=== PATIENT | female | born 1935 | race Hispanic/Latino ===

== ENCOUNTER 2017-03-11 19:50 | Observation (INO) | payer MEDICARE ==
[2017-03-11 20:50] LABS: BASO # 0.02 K/mm3 (0.0-2.0); BASO % 0.3 % (0.0-3.0); EOS # 0.2 (0.0-0.7); EOS % 2.7 % (1.5-5.0); GRAN # 5.17 (1.4-6.5); GRAN % 73.8 % (50.0-68.0); HEMATOCRIT 41.4 % (36.0-48.0); LYMPH % 14.9 % (22.0-35.0); MEAN CELL VOLUME 98.8 fl (80.0-105.0); MEAN CORPUSCULAR HEMOGLOBIN 32.9 pg (25.0-35.0); MEAN CORPUSCULAR HGB CONC 33.3 g/dl (31.0-37.0); MEAN PLATELET VOLUME 10.1 fl (7.0-11.0); MONO # 0.6 (0.1-0.6); MONO % 8.3 % (1.0-6.0); RED CELL DISTRIBUTION WIDTH 13.6 % (11.5-14.5)
[2017-03-11 20:51] LABS: ALB/GLOB RATIO 1.2 (1.1-1.8); ALKALINE PHOSPHATASE 79 U/L (38-126); ALT/SGPT 138 U/L (7-56); AST/SGOT 311 U/L (14-36); BILIRUBIN,TOTAL 1.6 mg/dL (0.2-1.3); BLOOD UREA NITROGEN 25 mg/dL (7-21); CARBON DIOXIDE 31 mmol/L (21-33); CHLORIDE 98 mmol/L (98-107); GFR AFRICAN-AMERICAN > 60; GLUCOSE,RANDOM 157 mg/dL (70-110); MAGNESIUM 1.6 mg/dL (1.7-2.2); POTASSIUM 3.5 mmol/L (3.6-5.0); SODIUM 141 mmol/L (132-148); TOTAL PROTEIN 7.9 g/dL (5.8-8.3)
[2017-03-11 20:57] LABS: INR 2.76 (0.93-1.08); PARTIAL THROMBOPLASTIN TIME 37.3 Seconds (23.7-30.8)
[2017-03-11 21:02] LABS: TROPONIN I 0.05 ng/mL
[2017-03-11 21:20] LABS: URINE BILIRUBIN NEGATIVE (NEGATIVE); URINE BLOOD NEGATIVE (NEGATIVE); URINE GLUCOSE (UA) NEGATIVE (NEGATIVE); URINE KETONE NEGATIVE (NEGATIVE); URINE LEUKOCYTE ESTERASE TRACE Leu/uL (NEGATIVE); URINE PROTEIN NEGATIVE mg/dL (<30 mg/dL); URINE UROBILINOGEN 0.2 E.U./dL (<1 E.U./dL)
[2017-03-11 21:22] LABS: URINE APPEARANCE SL CLOUDY (CLEAR); URINE COLOR YELLOW (YELLOW)
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
[2017-03-11 22:09] LABS: URINE BACTERIA FEW (NEG); URINE EPITHELIAL CELLS 0 - 2 /hpf (0-5); URINE RBC 0 - 2 /hpf (0-2)
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
[2017-03-12] MEDS ORDERED: Magnesium Sulfate 2 GM in Sodium Chloride 0.9% 100 ML IVPB ONE (02:46)
[2017-03-12] MEDS: Pantoprazole 40 mg EC Tab PO SCH (06:19)
[2017-03-12 06:39] LABS: BASO # 0.02 K/mm3 (0.0-2.0); BASO % 0.4 % (0.0-3.0); EOS # 0.1 (0.0-0.7); EOS % 2.7 % (1.5-5.0); GRAN # 3.51 (1.4-6.5); GRAN % 71.6 % (50.0-68.0); LYMPH # 0.8 (1.2-3.4); LYMPH % 17.1 % (22.0-35.0); MEAN CELL VOLUME 98.8 fl (80.0-105.0); MEAN CORPUSCULAR HEMOGLOBIN 32.5 pg (25.0-35.0); MEAN CORPUSCULAR HGB CONC 32.9 g/dl (31.0-37.0); MEAN PLATELET VOLUME 10.3 fl (7.0-11.0); MONO # 0.4 (0.1-0.6); MONO % 8.2 % (1.0-6.0); RED CELL DISTRIBUTION WIDTH 13.7 % (11.5-14.5); WHITE BLOOD COUNT 4.9 10^3/ul (4.5-11.0)
[2017-03-12 06:48] LABS: ALB/GLOB RATIO 1.2 (1.1-1.8); ALKALINE PHOSPHATASE 86 U/L (38-126); ALT/SGPT 354 U/L (7-56); AST/SGOT 646 U/L (14-36); BLOOD UREA NITROGEN 22 mg/dL (7-21); CALCIUM 9.1 mg/dL (8.4-10.5); CARBON DIOXIDE 33 mmol/L (21-33); CHLORIDE 99 mmol/L (98-107); GFR AFRICAN-AMERICAN > 60; GLUCOSE,RANDOM 200 mg/dL (70-110); INR 2.69 (0.93-1.08); MAGNESIUM 2.2 mg/dL (1.7-2.2); PARTIAL THROMBOPLASTIN TIME 36.6 Seconds (23.7-30.8); POTASSIUM 3.6 mmol/L (3.6-5.0); SODIUM 141 mmol/L (132-148); TOTAL PROTEIN 7.7 g/dL (5.8-8.3)
[2017-03-12 06:55] LABS: TROPONIN I 0.06 ng/mL
[2017-03-12] MEDS: Insulin Lispro (humaLOG) MEDIUM Coverage SC SCH ×4 (08:22→21:48)
--- NOTE | 2017-03-12 08:25 | CON ---
DATE: 03/12/2017 CONSULTATION OF INDICATION: Chest pain. HISTORY OF PRESENT ILLNESS: This is an 81-year-old lady who was admitted to the emergency room yesterday when she complained about a midsternal to midepigastric discomfort which was like a fullness, which was uncomfortable, but not painful as she described it. It was not associated with diaphoresis or shortness of breath. It resolved during the night. This morning, she does not have the symptoms. There was no shortness of breath, orthopnea, PND, syncope, presyncope, lightheadedness, dizziness, vertigo, palpitation, edema, fever, chills, cough, sputum production, hemoptysis, abdominal pain, nausea, vomiting, diarrhea, constipation, or melena. PAST MEDICAL HISTORY: Notable for prior chest pain. She has hypertension, COPD, chronic left bundle branch block, chronic atrial fibrillation, on warfarin; diabetes, hyperlipidemia, fatty liver, osteoarthritis, kyphoscoliosis. She has a history of lung resection for cancer. She has a history of colon resection. There is history of peripheral arterial disease, diverticulosis. There is no history of rheumatic fever, myocardial infarction, stroke, TIA, or gout. MEDICATIONS: At the time of admission, Coreg, digoxin, Bumex, metformin, glipizide, Xanax, Coumadin, aspirin, budesonide, Brovana, Tudorza. ALLERGIES: SHE NOTES AN ALLERGY TO LASIX AND LATEX. SOCIAL HISTORY: She lives at home. She ambulates with a cane. She does not smoke cigarettes or drink alcohol. FAMILY HISTORY: Noncontributory. REVIEW OF SYSTEMS: A 10-point review of systems otherwise unremarkable except as noted above. PHYSICAL EXAMINATION GENERAL: She is an elderly woman, sitting in chair, on telemetry, in no acute distress. VITAL SIGNS: Vital signs are notable for atrial fibrillation with 60 beats per minute, she is afebrile, blood pressure 127/51, respirations 16-20, O2 sat 97% to 99% on room air. HEENT: Reveals no neck pain, distention, thyromegaly, carotid bruits. Mucous membranes moist. Conjunctiva pink. NECK: Supple. LUNGS: Few scattered rhonchi. Diminished breath sounds at the bases. HEART: Reveals an irregular rhythm. Normal first and second heart sounds. Soft systolic murmur along the left sternal border. ABDOMEN: Soft. Bowel sounds present. No mass, organomegaly, tenderness, rebound, or guarding. No CVA tenderness. No palpable abdominal aortic aneurysm. EXTREMITIES: Reveals no cyanosis, clubbing, or edema. NEUROLOGIC: She is awake, alert, and oriented. SKIN: Warm and dry. No rash or cellulitis. LABORATORY AND IMAGING: Portable chest x-ray is not interpret yet. There is no evidence of infiltrate or CHF. There were small bilateral pleural effusions noted. EKG demonstrates atrial fibrillation, left bundle branch block. CBC is unremarkable. PT/INR consistent with warfarin therapy. INR is 2.69 this morning. Electrolytes, BUN, creatinine, and blood sugars unremarkable. LFTs are abnormal with an AST of 646 this morning, ALT 354, bilirubin 3.0, alkaline phosphatase normal. CK negative x2. Troponin negative x3. BNP 2310. Urinalysis noted. An echocardiogram 07/29 shows moderate LV dysfunction with mild AI and MR and moderate TR and PH. IMPRESSION: Chasity Lerner is an 81-year-old woman with chronic atrial fibrillation, on warfarin, who has developed midepigastric and low sternal discomfort and has abnormal liver function test, suggesting the possibility of underlying gastrointestinal problem with no evidence of acute cardiac ischemia, negative troponins and chronic left bundle branch block on her EKG. PLAN: At this time she is on Telemetry. We will continue cardiac medications including Coreg, Digoxin, aspirin, warfarin. We will monitor INRs. We will check a digoxin level. She should have a GI evaluation. I will check an amylase and a lipase level. An abdominal ultrasound is ordered. I will review old records and her 07/29 echocardiogram. We will monitor I's and O's. Check stool for occult blood. I will follow with you. I will make additional recommendations based on her clinical course. Travis Cotter MD [facility]
[2017-03-12 08:32] LABS: AMYLASE 49 U/L (35-125); LIPASE 75 U/L (23-300)
--- NOTE | 2017-03-12 08:44 | CARD ---
APPROVED REPORT EKG Measurement Heart [id number] <Conclusion> Atrial fibrillation Left bundle branch block No change
--- NOTE | 2017-03-12 08:51 | CARD ---
APPROVED REPORT EKG Measurement Heart [id number] <Conclusion> Atrial fibrillation Left bundle branch block No change
--- NOTE | 2017-03-12 09:05 | CARD ---
APPROVED REPORT EKG Measurement Heart [id number] <Conclusion> Atrial fibrillation with slow ventricular response Left axis deviation Left bundle branch block No change
[2017-03-12] MEDS: Arformoterol 15 mcg/2 ml Inh Sol IH SCH ×2 (09:15→20:12)
--- NOTE | 2017-03-12 10:09 | RAD ---
HISTORY: cp COMPARISON: 02/01/2017 FINDINGS: LUNGS: No active pulmonary disease. PLEURA: Blunting of both costophrenic angles may reflect small pleural effusions or chronic pleural thickening. CARDIOVASCULAR: Normal heart size. Surgical clips about right hilum OSSEOUS STRUCTURES: No significant abnormalities. VISUALIZED UPPER ABDOMEN: Normal. OTHER FINDINGS: None. IMPRESSION: No acute infiltrate. Possible small bilateral pleural effusion.
--- NOTE | 2017-03-12 14:27 | US ---
HISTORY: Transaminitis COMPARISON: None. TECHNIQUE: Sonographic evaluation of the abdomen. FINDINGS: LIVER: Measures 15.5 cm. Diffusely increased echogenicity of the liver parenchyma. Consistent with fatty infiltration. Smooth contour. No mass. No biliary ductal dilatation. GALLBLADDER: Cholelithiasis. No mural thickening. No pericholecystic fluid. Negative sonographic Pryor sign. COMMON BILE DUCT: Measures 5 mm. No stones. No dilatation. PANCREAS: Unremarkable as visualized. No mass. No ductal dilatation. RIGHT KIDNEY: Measures 11.2cm. Normal cortical echogenicity. Upper pole cortical cyst, 2.0 x 2.2 x 2.4 cm. No calculus or hydronephrosis. LEFT KIDNEY: Measures 11.1cm. Normal cortical echogenicity. Mid to upper pole cortical cyst, 3.8 x 3.8 x 4.8 cm. No calculus or hydronephrosis. SPLEEN: Normal in size and contour. No mass. AORTA: No aneurysmal dilatation. IVC: Unremarkable. OTHER FINDINGS: None. IMPRESSION: Cholelithiasis without sonographic evidence of cholecystitis. Diffuse fatty infiltration of the liver. Bilateral simple renal cortical cysts.
[2017-03-12] MEDS: Digoxin 125 mcg (0.125 mg) Tab PO SCH (14:50)
[2017-03-12 14:57] LABS: TROPONIN I 0.05 ng/mL
[2017-03-12 22:50] LABS: TROPONIN I 0.06 ng/mL
[2017-03-12 22:58] VITALS: BMI 25.4
[2017-03-13] MEDS: Pantoprazole 40 mg EC Tab PO SCH (06:12)
[2017-03-13 06:55] LABS: BASO # 0.04 K/mm3 (0.0-2.0); BASO % 0.8 % (0.0-3.0); EOS # 0.4 (0.0-0.7); EOS % 7.6 % (1.5-5.0); GRAN # 2.73 (1.4-6.5); GRAN % 55.8 % (50.0-68.0); HEMATOCRIT 41.8 % (36.0-48.0); LYMPH # 1.3 (1.2-3.4); MEAN CELL VOLUME 99.1 fl (80.0-105.0); MEAN CORPUSCULAR HEMOGLOBIN 32.5 pg (25.0-35.0); MEAN CORPUSCULAR HGB CONC 32.8 g/dl (31.0-37.0); MEAN PLATELET VOLUME 10.2 fl (7.0-11.0); MONO # 0.5 (0.1-0.6); MONO % 9.8 % (1.0-6.0); RED CELL DISTRIBUTION WIDTH 13.9 % (11.5-14.5); WHITE BLOOD COUNT 4.9 10^3/ul (4.5-11.0)
[2017-03-13 06:57] LABS: INR 2.45 (0.93-1.08); PARTIAL THROMBOPLASTIN TIME 36.9 Seconds (23.7-30.8)
[2017-03-13 07:05] LABS: ALB/GLOB RATIO 1.1 (1.1-1.8); BILIRUBIN,TOTAL 2.1 mg/dL (0.2-1.3); PHOSPHOROUS 3.4 mg/dL (2.5-4.5); POTASSIUM 3.5 mmol/L (3.6-5.0); TOTAL PROTEIN 7.9 g/dL (5.8-8.3)
--- NOTE | 2017-03-13 08:01 | CARD ---
APPROVED REPORT EKG Measurement Heart [id number] <Conclusion> Atrial fibrillation with slow ventricular response Left axis deviation Left bundle branch block No change
[2017-03-13] MEDS: Insulin Lispro (humaLOG) MEDIUM Coverage SC SCH ×4 (08:06→21:19)
[2017-03-13] MEDS: Arformoterol 15 mcg/2 ml Inh Sol IH SCH ×2 (08:16→21:28)
--- NOTE | 2017-03-13 08:25 | CP.PCM.PN ---
Subjective - Date & Time of Evaluation Date of Evaluation: 03/13/17 Time of Evaluation: 07:00 - Subjective Subjective: Stable on 2R. No CP or SOB. V/S noted. AF PE: Lungs: clear Cor.: irreg S1S2 Abd.: soft Ext.: no edema Neuro.: alert Labs noted: INR= 2.45, K+= 3.5, Mg.++= 2.0, Dig.=1.0, trops neg. x 4, Amylase /Lipase pending Abd.: U/S noted: Gall Stones, etc. ECG 03/12 noted: AF, LBBB Echo 07/29 noted: Moderate LVD, Mild AI and MR, moderate TR and PH. Objective - Vital Signs/Intake and Output Vital Signs (last 24 hours): Temp Pulse Resp BP Pulse Ox 98.0 F 66 20 126/73 95 03/13/17 06:00 03/13/17 06:00 03/13/17 06:00 03/13/17 06:00 03/13/17 06:00 - Medications Medications: Current Medications Alprazolam (Xanax) 0.25 mg PO BID [facility] PRN Reason: Protocol Stop: 03/19/17 10:01 Last Admin: 03/12/17 18:34 Dose: 0.25 mg Arformoterol Tartrate (Brovana) 15 mcg IH BIDRESP [facility] Last Admin: 03/12/17 20:12 Dose: 15 mcg Aspirin (Ecotrin) 81 mg PO DAILY [facility] Last Admin: 03/12/17 10:12 Dose: 81 mg Bumetanide (Bumex) 0.5 mg PO BID [facility] Last Admin: 03/12/17 21:23 Dose: 0.5 mg Carvedilol (Coreg) 3.125 mg PO BID [facility] Last Admin: 03/12/17 18:32 Dose: 3.125 mg Digoxin (Lanoxin) 0.125 mg PO 1400 [facility] Last Admin: 03/12/17 14:50 Dose: Not Given Insulin Human Lispro (Humalog Med) 0 units SC ACHS [facility] PRN Reason: Protocol Last Admin: 03/12/17 21:48 Dose: Not Given Pantoprazole Sodium (Protonix Ec Tab) 40 mg PO 0600 [facility] Last Admin: 03/13/17 06:12 Dose: 40 mg Potassium Chloride (K-Dur 20 Meq Er Tab) 20 meq PO BRK [facility] Warfarin Sodium (Coumadin) 4 mg PO 1800 [facility] Last Admin: 03/12/17 18:31 Dose: 4 mg - Labs Labs: 03/13/17 06:40 03/13/17 06:40 PT 26.5 Seconds (9.9-11.8) H 03/13/17 06:40 INR 2.45 (0.93-1.08) H 03/13/17 06:40 APTT 36.9 Seconds (23.7-30.8) H 03/13/17 06:40 Assessment and Plan - Assessment and Plan (Free Text) Assessment: ZACH and Chest Pain Abnormall LFT's Gall Stones Small bilat. pleural effusions on CXR Chronic AF, on warfarin CHF COPD HBP HLD PAD Fatty Liver S/P lung resection for cancer S/P colon resection OA Kyphoscoliosis Plan: GI evaluation Replace K+ Continue cardiac meds. Monitor INR's Check stool for occult blood OOB as francis. Will follow.
[2017-03-13] MEDS: Potassium Chloride 20 mEq ER Tab PO SCH (09:08)
[2017-03-13] MEDS: Digoxin 125 mcg (0.125 mg) Tab PO SCH (14:33)
--- NOTE | 2017-03-13 20:44 | CP.PCM.PN ---
<Mary Ellen Dickey - Last Filed: 03/13/17 20:48> Subjective - Date & Time of Evaluation Date of Evaluation: 03/13/17 Time of Evaluation: 08:00 - Subjective Subjective: Hospitalist Service Progress Note: Patient seen and examined at bedside. Per nursing no acute events overnight. Patient is doing well, denies any chest discomfort at this time. Denies headaches, dizziness, cp, palpitations, abdominal pain, urinary symptoms, changes in bowel habits. Objective - Vital Signs/Intake and Output Vital Signs (last 24 hours): Temp Pulse Resp BP Pulse Ox 98 F 60 19 115/77 95 03/13/17 17:47 03/13/17 18:00 03/13/17 17:47 03/13/17 17:47 03/13/17 06:00 - Medications Medications: Current Medications Alprazolam (Xanax) 0.25 mg PO BID [facility] PRN Reason: Protocol Stop: 03/19/17 10:01 Last Admin: 03/13/17 17:43 Dose: 0.25 mg Arformoterol Tartrate (Brovana) 15 mcg IH BIDRESP [facility] Last Admin: 03/13/17 08:16 Dose: 15 mcg Aspirin (Ecotrin) 81 mg PO DAILY [facility] Last Admin: 03/13/17 09:07 Dose: 81 mg Bumetanide (Bumex) 0.5 mg PO BID [facility] Last Admin: 03/13/17 17:43 Dose: 0.5 mg Carvedilol (Coreg) 3.125 mg PO BID [facility] Last Admin: 03/13/17 17:43 Dose: 3.125 mg Digoxin (Lanoxin) 0.125 mg PO 1400 [facility] Last Admin: 03/13/17 14:33 Dose: 0.125 mg Insulin Human Lispro (Humalog Med) 0 units SC ACHS [facility] PRN Reason: Protocol Last Admin: 03/13/17 16:30 Dose: Not Given Pantoprazole Sodium (Protonix Ec Tab) 40 mg PO 0600 [facility] Last Admin: 03/13/17 06:12 Dose: 40 mg Potassium Chloride (K-Dur 20 Meq Er Tab) 20 meq PO BRK [facility] Last Admin: 03/13/17 09:08 Dose: 20 meq Warfarin Sodium (Coumadin) 4 mg PO 1800 [facility] Last Admin: 03/13/17 17:42 Dose: 4 mg - Labs Labs: 03/13/17 06:40 03/13/17 06:40 PT 26.5 Seconds (9.9-11.8) H 03/13/17 06:40 INR 2.45 (0.93-1.08) H 03/13/17 06:40 APTT 36.9 Seconds (23.7-30.8) H 03/13/17 06:40 - Constitutional Appears: Well, No Acute Distress - Head Exam Head Exam: ATRAUMATIC, NORMAL INSPECTION - Eye Exam Eye Exam: EOMI, Normal appearance Pupil Exam: NORMAL ACCOMODATION - ENT Exam ENT Exam: Mucous Membranes Moist - Neck Exam Neck Exam: Full ROM - Respiratory Exam Respiratory Exam: Clear to Ausculation Bilateral, NORMAL BREATHING PATTERN. absent: Rales, Rhonchi, Wheezes - Cardiovascular Exam Cardiovascular Exam: REGULAR RHYTHM, +S1, +S2 - GI/Abdominal Exam GI & Abdominal Exam: Soft. absent: Guarding, Rigid, Tenderness Additional comments: Negative murphys sign - Rectal Exam Rectal Exam: Deferred - Extremities Exam Extremities Exam: Full ROM, Normal Inspection. absent: Calf Tenderness - Back Exam Back Exam: NORMAL INSPECTION - Neurological Exam Neurological Exam: Alert, Awake, Oriented x3 - Psychiatric Exam Psychiatric exam: Normal Affect, Normal Mood - Skin Skin Exam: Normal Color, Warm Assessment and Plan - Assessment and Plan (Free Text) Assessment: 81 F w/ pertinent PMHx of CHF and A-Fib presenting with 6 hours of chest discomfort, non-radiating, without associated symptoms. Plan: 1. Chest pain likely 2/2 Anxiety VS GERD R/o ACS - Cardio consult, Dr. Cotter - EKG showed LBBB and A-Fib, consistent with previous EKGs - BNP elevated, but lower than last visit; - CXR shows blunted cardiophrenic angles, but no clinical signs of CHF - ASA 81 mg PO daily - Patient is already on home medications of Bumex and Lasix 2. Transaminitis likely 2/2 Medication SE VS Unknown Etiology - AST/ALT markedly elevated - Abdominal U/S showing cholilethiasis - MRCP ordered for further evaluation - GI consulted, f/u recommendations 3. RLE Wound - Patient has good follow up for these chronic wounds - Will continue to monitor 4. Hx/O Atrial fibrillation - Continue home Carvediol - held at night because HR dipping into 50s - Continue home Digoxin - Continue home Coumadin - INR Therapeutic, continue to monitor 5. Hx/O DM 2 - RISS Moderate - ACHS Accuchecks - Hold oral anti-hyperglycemics 6. Hx/O CHF - Continue home Bumetanide - Continue home Lasix - Echo ordered - Cardiology on consult, f/u recommendations 7. Hx/O COPD - Continue home Brovana - Continue Pulmicort GI/DVT PPX - Patient is on Coumadin; Protonix <Rangasamy,Ajantha - Last Filed: 03/14/17 13:39> Objective - Vital Signs/Intake and Output Vital Signs (last 24 hours): Temp Pulse Resp BP Pulse Ox 97.4 F L 51 L 18 144/82 93 L 03/14/17 12:00 03/14/17 12:00 03/14/17 12:00 03/14/17 12:00 03/14/17 05:22 Intake and Output: 03/14/17 03/14/17 06:59 18:59 Intake Total 1380 Output Total 3 Balance 1377 - Medications Medications: Current Medications Alprazolam (Xanax) 0.25 mg PO BID [facility] PRN Reason: Protocol Stop: 03/19/17 10:01 Last Admin: 03/14/17 10:02 Dose: Not Given Arformoterol Tartrate (Brovana) 15 mcg IH BIDRESP [facility] Last Admin: 03/14/17 07:43 Dose: 15 mcg Aspirin (Ecotrin) 81 mg PO DAILY [facility] Last Admin: 03/14/17 10:00 Dose: 81 mg Benzocaine/Menthol (Cepacol Sore Throat) 1 lorenza MT Q2H PRN PRN Reason: Sore Throat Last Admin: 03/14/17 03:30 Dose: 1 lorenza Bumetanide (Bumex) 0.5 mg PO BID [facility] Last Admin: 03/14/17 09:59 Dose: 0.5 mg Carvedilol (Coreg) 3.125 mg PO BID [facility] Last Admin: 03/14/17 10:00 Dose: 3.125 mg Digoxin (Lanoxin) 0.125 mg PO 1400 [facility] Last Admin: 03/13/17 14:33 Dose: 0.125 mg Insulin Human Lispro (Humalog Med) 0 units SC [facility] PRN Reason: Protocol Last Admin: 03/14/17 12:26 Dose: 5 units Pantoprazole Sodium (Protonix Ec Tab) 40 mg PO 0600 [facility] Last Admin: 03/14/17 06:41 Dose: 40 mg Potassium Chloride (K-Dur 20 Meq Er Tab) 20 meq PO BRK [facility] Last Admin: 03/14/17 09:59 Dose: 20 meq Ursodiol (Actigall) 300 mg PO BID [facility] Warfarin Sodium (Coumadin) 4 mg PO 1800 [facility] Last Admin: 03/13/17 17:42 Dose: 4 mg - Labs Labs: 03/14/17 06:00 03/14/17 06:00 PT 27.6 Seconds (9.9-11.8) H 03/14/17 06:00 INR 2.56 (0.93-1.08) H 03/14/17 06:00 APTT 37.6 Seconds (23.7-30.8) H 03/14/17 06:00 Attending/Attestation - Attestation I have personally seen and examined this patient.: Yes I have fully participated in the care of the patient.: Yes I have reviewed all pertinent clinical information, including history, physical exam and plan: Yes Notes (Text): 03/14/17 13:34 attending note; Patient seen and examined with the resident. Patient is alert, awake and oriented. patient is a 81-year-old female with PMHx of CHF and A-Fib,diabetes, hypertension is admitted chest pain. Cardiac enzymes negative. Cardiology evaluation appreciated. Patient has chronic cardiomyopathy with ejection fraction of 25%. continue cardiac meds. Continue Coumadin. INR is therapeutic. elevated LFTs; passive liver congestion vs cbd stone vs sludge. repeat LFT ordered. ultrasound showed gallstones. MRCP ordered. Case discussed with GI Dr. Brito in detail. upon discharge the patient will follow-up with PMD .
[2017-03-13] MEDS ORDERED: Lidocaine 5% Patch TD ONE (22:09)
[2017-03-14] MEDS ORDERED: Benzocaine/Menthol (Cepacol) Lozenge MT PRN (03:12)
[2017-03-14 05:24] VITALS: RESP 18; O2SAT 93
[2017-03-14 06:23] LABS: BASO # 0.06 K/mm3 (0.0-2.0); BASO % 0.9 % (0.0-3.0); EOS # 0.4 (0.0-0.7); EOS % 6.3 % (1.5-5.0); GRAN # 4.03 (1.4-6.5); HEMATOCRIT 41.4 % (36.0-48.0); LYMPH # 1.3 (1.2-3.4); LYMPH % 19.9 % (22.0-35.0); MEAN CELL VOLUME 98.6 fl (80.0-105.0); MEAN CORPUSCULAR HEMOGLOBIN 32.1 pg (25.0-35.0); MEAN CORPUSCULAR HGB CONC 32.6 g/dl (31.0-37.0); MEAN PLATELET VOLUME 10.3 fl (7.0-11.0); MONO # 0.8 (0.1-0.6); MONO % 11.9 % (1.0-6.0); WHITE BLOOD COUNT 6.6 10^3/ul (4.5-11.0)
[2017-03-14 06:38] LABS: INR 2.56 (0.93-1.08); PARTIAL THROMBOPLASTIN TIME 37.6 Seconds (23.7-30.8)
[2017-03-14] MEDS: Pantoprazole 40 mg EC Tab PO SCH (06:41)
[2017-03-14 07:35] LABS: ALB/GLOB RATIO 1.2 (1.1-1.8); BILIRUBIN,TOTAL 1.1 mg/dL (0.2-1.3); MAGNESIUM 1.9 mg/dL (1.7-2.2); PHOSPHOROUS 3.4 mg/dL (2.5-4.5); POTASSIUM 3.8 mmol/L (3.6-5.0); TOTAL PROTEIN 7.8 g/dL (5.8-8.3)
[2017-03-14] MEDS: Arformoterol 15 mcg/2 ml Inh Sol IH SCH (07:43)
--- NOTE | 2017-03-14 08:03 | CARD ---
APPROVED REPORT EXAM: Two-dimensional and M-mode echocardiogram with Doppler and color Doppler. Other Information Quality : AverageRhythm : INDICATION Chest Pain 2D DIMENSIONS Left Atrium (2D)4.8 (1.6-4.0cm)IVSd1.2 (0.7-1.1cm) LVDd5.0 (3.9-5.9cm)PWd1.1 (0.7-1.1cm) LVDs4.5 (2.5-4.0cm)LVEF (%)25.0 (>50%) M-Mode DIMENSIONS Aortic Root2.90 (2.2-3.7cm)Aortic Cusp Exc.1.40 (1.5-2.0cm) Aortic Valve AoV Peak Zqwvjatt668.0cm/s Mitral Valve MV E Iuggmuib38.4cm/sMV A Ypqrggjj69.3cm/sE/A ratio1.9 TDI E/Lateral E'0.0E/Medial E'0.0 Tricuspid Valve TR Peak Zilbupgw825fr/sRAP [id number] Peak Gr.47mmHg [id number] LEFT VENTRICLE The left ventricle is normal size. There is normal left ventricular wall thickness. Left ventricle systolic function is severely impaired. The Ejection Fraction is - 25% There is severe global hypokinesis. RIGHT VENTRICLE The right ventricle is normal size. ATRIA The left atrium is moderately dilated. The right atrium size is normal. The interatrial septum is intact with no evidence for an atrial septal defect. AORTIC VALVE The aortic valve is moderately calcified. There is trace aortic regurgitation. MITRAL VALVE The mitral valve is normal in structure. Mitral regurgitation is moderate. TRICUSPID VALVE The tricuspid valve is normal in structure. There is moderate to severe tricuspid regurgitation. There is moderate-severe pulmonary hypertension. PULMONIC VALVE The pulmonic valve is not well visualized. GREAT VESSELS The aortic root is normal in size. PERICARDIAL EFFUSION There is no pericardial effusion. <Conclusion> The left ventricle is normal size. There is normal left ventricular wall thickness. Left ventricle systolic function is severely impaired. The Ejection Fraction is - 25% There is severe global hypokinesis. The aortic valve is moderately calcified. Aortic sclerosis. There is trace aortic regurgitation. Mitral regurgitation is moderate. There is moderate to severe tricuspid regurgitation. There is moderate-severe pulmonary hypertension.
--- NOTE | 2017-03-14 08:42 | CP.PCM.PN ---
Subjective - Date & Time of Evaluation Date of Evaluation: 03/14/17 Time of Evaluation: 07:00 - Subjective Subjective: Stable on 2R. No CP or SOB. V/S noted. AF PE: Lungs: clear Cor.: irreg S1S2 Abd.: soft Ext.: no edema Neuro.: alert Labs noted: INR= therapeutic, LFT's improving, Amylase and Lipase were NL. Abd.: U/S noted: Gall Stones, etc. ECG 03/12 noted: AF, LBBB Echo: Severe LVD, EF ~ 25%, Aortic sclerosis, Trace AI, Moderate MR, Moderate to Severe TR and PH. Objective - Vital Signs/Intake and Output Vital Signs (last 24 hours): Temp Pulse Resp BP Pulse Ox 97.9 F 58 L 18 136/56 L 93 L 03/14/17 05:22 03/14/17 05:22 03/14/17 05:22 03/14/17 05:22 03/14/17 05:22 Intake and Output: 03/14/17 03/14/17 06:59 18:59 Intake Total 1380 Output Total 3 Balance 1377 - Medications Medications: Current Medications Alprazolam (Xanax) 0.25 mg PO BID [facility] PRN Reason: Protocol Stop: 03/19/17 10:01 Last Admin: 03/13/17 17:43 Dose: 0.25 mg Arformoterol Tartrate (Brovana) 15 mcg IH BIDRESP [facility] Last Admin: 03/14/17 07:43 Dose: 15 mcg Aspirin (Ecotrin) 81 mg PO DAILY [facility] Last Admin: 03/13/17 09:07 Dose: 81 mg Benzocaine/Menthol (Cepacol Sore Throat) 1 lorenza MT Q2H PRN PRN Reason: Sore Throat Last Admin: 03/14/17 03:30 Dose: 1 lorenza Bumetanide (Bumex) 0.5 mg PO BID [facility] Last Admin: 03/13/17 17:43 Dose: 0.5 mg Carvedilol (Coreg) 3.125 mg PO BID [facility] Last Admin: 03/13/17 17:43 Dose: 3.125 mg Digoxin (Lanoxin) 0.125 mg PO 1400 [facility] Last Admin: 03/13/17 14:33 Dose: 0.125 mg Insulin Human Lispro (Humalog Med) 0 units SC ACHS [facility] PRN Reason: Protocol Last Admin: 03/13/17 21:19 Dose: Not Given Pantoprazole Sodium (Protonix Ec Tab) 40 mg PO 0600 [facility] Last Admin: 03/14/17 06:41 Dose: 40 mg Potassium Chloride (K-Dur 20 Meq Er Tab) 20 meq PO BRK [facility] Last Admin: 03/13/17 09:08 Dose: 20 meq Warfarin Sodium (Coumadin) 4 mg PO 1800 [facility] Last Admin: 03/13/17 17:42 Dose: 4 mg - Labs Labs: 03/14/17 06:00 03/14/17 06:00 PT 27.6 Seconds (9.9-11.8) H 03/14/17 06:00 INR 2.56 (0.93-1.08) H 03/14/17 06:00 APTT 37.6 Seconds (23.7-30.8) H 03/14/17 06:00 Assessment and Plan - Assessment and Plan (Free Text) Assessment: ZACH and Chest Pain Abnormall LFT's Gall Stones, R/O passed stone Small bilat. pleural effusions on CXR Chronic AF, on warfarin Severe LVD with valvular heart disease: see echo report CHF COPD HBP HLD PAD Fatty Liver S/P lung resection for cancer S/P colon resection OA Kyphoscoliosis Plan: GI evaluation: Dr. Brito's note not in system yet; I spoke with Dr. Lundberg this AM. MRCP is scheduled for today. Replace K+ Continue cardiac meds. Monitor INR's Check stool for occult blood OOB as francis. Will follow.
[2017-03-14] MEDS: Potassium Chloride 20 mEq ER Tab PO SCH (09:59)
[2017-03-14] MEDS: Insulin Lispro (humaLOG) MEDIUM Coverage SC SCH ×2 (10:01→12:26)
--- NOTE | 2017-03-14 11:02 | MRI ---
PROCEDURE: Magnetic Resonance Cholangiopancreatography HISTORY: Rule out common duct stone COMPARISON: None available. TECHNIQUE: Multiplanar, multisequence MR images of the abdomen were obtained, including heavily T2 weighted MRCP images of the biliary system. Rotating maximum intensity projection images of the biliary system were generated. FINDINGS: MRCP: The common bile duct is of a normal caliber. No evidence of choledocholithiasis. No intrahepatic biliary ductal dilatation. LIVER: Unremarkable. GALLBLADDER: Multiple small stones are layered in the gallbladder. SPLEEN: Unremarkable. PANCREAS: Unremarkable. ADRENALS: Unremarkable. KIDNEYS: Unremarkable. AORTA: No aneurysm. ASCITES: None. OTHER FINDINGS: None. IMPRESSION: Multiple gallstones. No evidence of common duct stone or biliary obstruction
--- NOTE | 2017-03-14 11:18 | CP.PCM.DIS ---
<Mary Ellen Dickey - Last Filed: 03/14/17 13:49> Provider - Provider Date of Admission: 03/13/17 17:22 Attending physician: Meagan Lundberg MD Primary care physician: Serjio Aragon MD Consults: Cardiology: Vahe GI: Daryl Time Spent in preparation of Discharge (in minutes): 32 Hospital Course - Lab Results Lab Results: Most Recent Lab Values WBC 6.6 10^3/ul (4.5-11.0) D 03/14/17 06:00 RBC 4.20 10^6/uL (3.5-6.1) 03/14/17 06:00 Hgb 13.5 g/dL (12.0-16.0) 03/14/17 06:00 Hct 41.4 % (36.0-48.0) 03/14/17 06:00 MCV 98.6 fl (80.0-105.0) 03/14/17 06:00 MCH 32.1 pg (25.0-35.0) 03/14/17 06:00 MCHC 32.6 g/dl (31.0-37.0) 03/14/17 06:00 RDW 14.0 % (11.5-14.5) 03/14/17 06:00 Plt Count 172 10^3/uL (120.0-450.0) 03/14/17 06:00 MPV 10.3 fl (7.0-11.0) 03/14/17 06:00 Gran % 61.0 % (50.0-68.0) 03/14/17 06:00 Lymph % (Auto) 19.9 % (22.0-35.0) L 03/14/17 06:00 Stephenson % (Auto) 11.9 % (1.0-6.0) H 03/14/17 06:00 Eos % (Auto) 6.3 % (1.5-5.0) H 03/14/17 06:00 Baso % (Auto) 0.9 % (0.0-3.0) 03/14/17 06:00 Gran # 4.03 (1.4-6.5) 03/14/17 06:00 Lymph # 1.3 (1.2-3.4) 03/14/17 06:00 Stephenson # 0.8 (0.1-0.6) H 03/14/17 06:00 Eos # 0.4 (0.0-0.7) 03/14/17 06:00 Baso # 0.06 K/mm3 (0.0-2.0) 03/14/17 06:00 PT 27.6 Seconds (9.9-11.8) H 03/14/17 06:00 INR 2.56 (0.93-1.08) H 03/14/17 06:00 APTT 37.6 Seconds (23.7-30.8) H 03/14/17 06:00 Sodium 140 mmol/L (132-148) 03/14/17 06:00 Potassium 3.8 mmol/L (3.6-5.0) 03/14/17 06:00 Chloride 99 mmol/L (98-107) 03/14/17 06:00 Carbon Dioxide 29 mmol/L (21-33) 03/14/17 06:00 Anion Gap 16 (10-20) 03/14/17 06:00 BUN 33 mg/dL (7-21) H 03/14/17 06:00 Creatinine 1.4 mg/dL (0.5-1.4) 03/14/17 06:00 Est GFR ( Amer) 44 03/14/17 06:00 Est GFR (Non-Af Amer) 36 03/14/17 06:00 POC Glucose (mg/dL) 211 mg/dL (65-110) H 03/14/17 07:17 Random Glucose 204 mg/dL (70-110) H 03/14/17 06:00 Calcium 9.0 mg/dL (8.4-10.5) 03/14/17 06:00 Phosphorus 3.4 mg/dL (2.5-4.5) 03/14/17 06:00 Magnesium 1.9 mg/dL (1.7-2.2) 03/14/17 06:00 Total Bilirubin 1.1 mg/dL (0.2-1.3) 03/14/17 06:00 Direct Bilirubin 0.6 mg/dL (0.0-0.4) H 03/14/17 07:00 AST 144 U/L (14-36) H D 03/14/17 06:00 ALT 243 U/L (7-56) H 03/14/17 06:00 Alkaline Phosphatase 109 U/L (38-126) 03/14/17 06:00 Lactate Dehydrogenase 571 U/L (333-699) 03/14/17 07:55 Total Creatine Kinase 84 U/L (35-230) 03/12/17 22:20 Troponin I 0.06 ng/mL 03/12/17 22:20 NT-Pro-B Natriuret Pep 2310 pg/mL (0-450) H 03/11/17 20:30 Total Protein 7.8 g/dL (5.8-8.3) 03/14/17 06:00 Albumin 4.2 g/dL (3.0-4.8) 03/14/17 06:00 Globulin 3.6 gm/dL 03/14/17 06:00 Albumin/Globulin Ratio 1.2 (1.1-1.8) 03/14/17 06:00 Amylase 49 U/L (35-125) 03/12/17 06:00 Lipase 75 U/L (23-300) 03/12/17 06:00 Urine Color Yellow (YELLOW) 03/11/17 21:11 Urine Appearance Sl cloudy (CLEAR) 03/11/17 21:11 Urine pH 6.0 (4.7-8.0) 03/11/17 21:11 Ur Specific [place] 1.015 (1.005-1.035) 03/11/17 21:11 Urine Protein Negative mg/dL (<30 mg/dL) 03/11/17 21:11 Urine Glucose (UA) Negative mg/dL (NEGATIVE) 03/11/17 21:11 Urine Ketones Negative mg/dL (NEGATIVE) 03/11/17 21:11 Urine Blood Negative (NEGATIVE) 03/11/17 21:11 Urine Nitrate Negative (NEGATIVE) 03/11/17 21:11 Urine Bilirubin Negative (NEGATIVE) 03/11/17 21:11 Urine Urobilinogen 0.2 E.U./dL (<1 E.U./dL) 03/11/17 21:11 Ur Leukocyte Esterase Trace Santhosh/uL (NEGATIVE) H 03/11/17 21:11 Urine RBC 0 - 2 /hpf (0-2) 03/11/17 21:11 Urine WBC 1 - 3 /hpf (0-6) 03/11/17 21:11 Ur Epithelial Cells 0 - 2 /hpf (0-5) 03/11/17 21:11 Urine Bacteria Few (NEG) 03/11/17 21:11 Digoxin 1.0 ng/mL (0.8-2.0) 03/13/17 06:40 - Hospital Course Hospital Course: 81 F PMHx pertinent for CHF, A-Fib rate-controlled, and CHF (EF 25%), presents with 6 hour duration (3PM) of non-radiating left and right sided chest "discomfort" of 7/10 severity with no associated symptoms, and which is not made better or worse with anything. Patient was admitted for chest pain, found to have transaminitis. BNP on admission was 2310 but did not appear fluid overloaded. CXR showed no infiltrate, possible small b/l pleural effusions. Cardiology was consulted and on the case. 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 Echo was performed and showed LVEF of 25 % with aortic stenosis and moderate mitral regurgitation. Patient on coumadin and digoxin for history of afib, INR was monitored and therapeutic. Abdominal US was performed for elevated LFTs. Showed fatty infiltration of the liver, cholelithiasis with no evidence of cholecystitis (see full report). GI was consulted and on the case. LFTs trended down. Patient went for MRCP that showed multiple gallstones, no evidence of CBD stone or biliary obstruction. Electrolytes were monitored and repleted as needed. On day of discharge, patient was doing well, chest discomfort resolved. Patient was in the chair tolerating diet. Offered no complaints. Denies headaches, dizziness, cp, palpitations, sob, abdominal pain, urinary symptoms, changes in bowel habits. Patient was medically stable and clear for discharge by consultants. Patient to follow up with Dr Cotter in the office as an outpatient. Patient also to follow up with Dr Brito within 1 week for repeat LFTs. All medications were reconciled. Patient to follow up with Dr Starkey upon discharge. All questions and concerns were addressed. Disposition: Home New Medications: Actigall 300mg BID #28 Discharge Exam - Head Exam Head Exam: ATRAUMATIC, NORMAL INSPECTION - Eye Exam Eye Exam: EOMI, Normal appearance Pupil Exam: NORMAL ACCOMODATION - ENT Exam ENT Exam: Mucous Membranes Moist - Neck Exam Neck exam: Full Rom - Respiratory Exam Respiratory Exam: Clear to PA & Lateral, UNREMARKABLE. absent: Rales, Rhonchi, Wheezes - Cardiovascular Exam Cardiovascular Exam: Irregular Rhythm, +S1, +S2 - GI/Abdominal Exam GI & Abdominal Exam: Normal Bowel Sounds, Soft. absent: Rebound, Rigid, Tenderness - Extremities Exam Extremities exam: full ROM, normal inspection Additional comments: +compression stockings - Back Exam Back exam: NORMAL INSPECTION - Neurological Exam Neurological exam: Alert, Oriented x3 - Psychiatric Exam Psychiatric exam: Normal Affect, Normal Mood - Skin Skin Exam: Normal Color, Warm Discharge Plan - Discharge Medications Prescriptions: Ursodiol [Actigall] 300 mg PO BID #28 cap - Follow Up Plan Condition: FAIR Disposition: HOME/ ROUTINE Instructions: Chest Pain (GEN), Gallstones (GEN) Additional Instructions: 1. Follow up with PMD Dr. Aragon in 1 week. 2. Follow up with GI in 1 week. Follow up LFT. 3/ Follow up with cardiology Dr. Cotter. Referrals: Travis Cotter MD [Staff Provider] - Serjio Aragon MD [Primary Care Provider] - Robbin Brito MD [Medical Doctor] - <Meagan Lundberg - Last Filed: 03/14/17 17:21> Provider - Provider Date of Admission: 03/11/17 21:09 Attending physician: Meagan Lundberg MD Primary care physician: Serjio Aragon MD Hospital Course - Lab Results Lab Results: Micro Results 03/11/17 21:11 Urine,Clean Catch Urine Culture - Final 10-50,000 CFU/ML. MULTIPLE SPECIES. PROBABLE CONTAMINATION. Most Recent Lab Values WBC 6.6 10^3/ul (4.5-11.0) D 03/14/17 06:00 RBC 4.20 10^6/uL (3.5-6.1) 03/14/17 06:00 Hgb 13.5 g/dL (12.0-16.0) 03/14/17 06:00 Hct 41.4 % (36.0-48.0) 03/14/17 06:00 MCV 98.6 fl (80.0-105.0) 03/14/17 06:00 MCH 32.1 pg (25.0-35.0) 03/14/17 06:00 MCHC 32.6 g/dl (31.0-37.0) 03/14/17 06:00 RDW 14.0 % (11.5-14.5) 03/14/17 06:00 Plt Count 172 10^3/uL (120.0-450.0) 03/14/17 06:00 MPV 10.3 fl (7.0-11.0) 03/14/17 06:00 Gran % 61.0 % (50.0-68.0) 03/14/17 06:00 Lymph % (Auto) 19.9 % (22.0-35.0) L 03/14/17 06:00 Stephenson % (Auto) 11.9 % (1.0-6.0) H 03/14/17 06:00 Eos % (Auto) 6.3 % (1.5-5.0) H 03/14/17 06:00 Baso % (Auto) 0.9 % (0.0-3.0) 03/14/17 06:00 Gran # 4.03 (1.4-6.5) 03/14/17 06:00 Lymph # 1.3 (1.2-3.4) 03/14/17 06:00 Stephenson # 0.8 (0.1-0.6) H 03/14/17 06:00 Eos # 0.4 (0.0-0.7) 03/14/17 06:00 Baso # 0.06 K/mm3 (0.0-2.0) 03/14/17 06:00 PT 27.6 Seconds (9.9-11.8) H 03/14/17 06:00 INR 2.56 (0.93-1.08) H 03/14/17 06:00 APTT 37.6 Seconds (23.7-30.8) H 03/14/17 06:00 Sodium 140 mmol/L (132-148) 03/14/17 06:00 Potassium 3.8 mmol/L (3.6-5.0) 03/14/17 06:00 Chloride 99 mmol/L (98-107) 03/14/17 06:00 Carbon Dioxide 29 mmol/L (21-33) 03/14/17 06:00 Anion Gap 16 (10-20) 03/14/17 06:00 BUN 33 mg/dL (7-21) H 03/14/17 06:00 Creatinine 1.4 mg/dL (0.5-1.4) 03/14/17 06:00 Est GFR ( Amer) 44 03/14/17 06:00 Est GFR (Non-Af Amer) 36 03/14/17 06:00 POC Glucose (mg/dL) 211 mg/dL (65-110) H 03/14/17 07:17 Random Glucose 204 mg/dL (70-110) H 03/14/17 06:00 Calcium 9.0 mg/dL (8.4-10.5) 03/14/17 06:00 Phosphorus 3.4 mg/dL (2.5-4.5) 03/14/17 06:00 Magnesium 1.9 mg/dL (1.7-2.2) 03/14/17 06:00 Total Bilirubin 1.1 mg/dL (0.2-1.3) 03/14/17 06:00 Direct Bilirubin 0.6 mg/dL (0.0-0.4) H 03/14/17 07:00 AST 144 U/L (14-36) H D 03/14/17 06:00 ALT 243 U/L (7-56) H 03/14/17 06:00 Alkaline Phosphatase 109 U/L (38-126) 03/14/17 06:00 Lactate Dehydrogenase 571 U/L (333-699) 03/14/17 07:55 Total Creatine Kinase 84 U/L (35-230) 03/12/17 22:20 Troponin I 0.06 ng/mL 03/12/17 22:20 NT-Pro-B Natriuret Pep 2310 pg/mL (0-450) H 03/11/17 20:30 Total Protein 7.8 g/dL (5.8-8.3) 03/14/17 06:00 Albumin 4.2 g/dL (3.0-4.8) 03/14/17 06:00 Globulin 3.6 gm/dL 03/14/17 06:00 Albumin/Globulin Ratio 1.2 (1.1-1.8) 03/14/17 06:00 Amylase 49 U/L (35-125) 03/12/17 06:00 Lipase 75 U/L (23-300) 03/12/17 06:00 Urine Color Yellow (YELLOW) 03/11/17 21:11 Urine Appearance Sl cloudy (CLEAR) 03/11/17 21:11 Urine pH 6.0 (4.7-8.0) 03/11/17 21:11 Ur Specific [place] 1.015 (1.005-1.035) 03/11/17 21:11 Urine Protein Negative mg/dL (<30 mg/dL) 03/11/17 21:11 Urine Glucose (UA) Negative mg/dL (NEGATIVE) 03/11/17 21:11 Urine Ketones Negative mg/dL (NEGATIVE) 03/11/17 21:11 Urine Blood Negative (NEGATIVE) 03/11/17 21:11 Urine Nitrate Negative (NEGATIVE) 03/11/17 21:11 Urine Bilirubin Negative (NEGATIVE) 03/11/17 21:11 Urine Urobilinogen 0.2 E.U./dL (<1 E.U./dL) 03/11/17 21:11 Ur Leukocyte Esterase Trace Santhosh/uL (NEGATIVE) H 03/11/17 21:11 Urine RBC 0 - 2 /hpf (0-2) 03/11/17 21:11 Urine WBC 1 - 3 /hpf (0-6) 03/11/17 21:11 Ur Epithelial Cells 0 - 2 /hpf (0-5) 03/11/17 21:11 Urine Bacteria Few (NEG) 03/11/17 21:11 Digoxin 1.0 ng/mL (0.8-2.0) 03/13/17 06:40 Attending/Attestation - Attestation I have personally seen and examined this patient.: Yes I have fully participated in the care of the patient.: Yes I have reviewed all pertinent clinical information, including history, physical exam and plan: Yes Notes (Text): 03/14/17 17:19 attending note; Patient seen and examined with the resident. Patient is alert, awake and oriented. patient is a 81-year-old female with PMHx of CHF and A-Fib,diabetes, hypertension is admitted chest pain. Cardiac enzymes negative. Cardiology evaluation appreciated. Patient has chronic cardiomyopathy with ejection fraction of 25%. continue cardiac meds. Continue Coumadin. INR is therapeutic. elevated LFTs; passive liver congestion vs cbd stone vs sludge. repeat LFT improved. ultrasound showed gallstones. MRCP is negative for CBD stone or dilatation. Case discussed with GI Dr. Brito in detail. started on Actigall. upon discharge the patient will follow-up with PMD . needs repeat LFT in 1 week. Diagnosis; A. fib Cardiomyopathy Elevated LFTs gait instability
[2017-03-14 12:06] VITALS: BP 144/82; PULSE 51; TEMP 97.4
[2017-03-14] MEDS: Digoxin 125 mcg (0.125 mg) Tab PO SCH (14:19)
[2017-03-14 14:20] VITALS: PULSE 86
--- NOTE | 2017-03-14 16:18 | CP.PCM.PN ---
Subjective - Date & Time of Evaluation Date of Evaluation: 03/14/17 Time of Evaluation: 11:05 - Subjective Subjective: Seen and examined at the bedside earlier today, the chart was reviewed. Patient denies nausea, vomiting, shortness of breath, chest pain or abdominal pain. Had MRCP this morning. Objective - Vital Signs/Intake and Output Vital Signs (last 24 hours): Temp Pulse Resp BP Pulse Ox 97.4 F L 51 L 18 144/82 93 L 03/14/17 12:00 03/14/17 12:00 03/14/17 12:00 03/14/17 12:00 03/14/17 05:22 Intake and Output: 03/14/17 03/14/17 06:59 18:59 Intake Total 1380 Output Total 3 Balance 1377 - Labs Labs: 03/14/17 06:00 03/14/17 06:00 PT 27.6 Seconds (9.9-11.8) H 03/14/17 06:00 INR 2.56 (0.93-1.08) H 03/14/17 06:00 APTT 37.6 Seconds (23.7-30.8) H 03/14/17 06:00 - Constitutional Appears: No Acute Distress (O) - Head Exam Head Exam: NORMOCEPHALIC - Eye Exam Eye Exam: Normal appearance. absent: Scleral icterus - ENT Exam ENT Exam: Mucous Membranes Moist - Neck Exam Neck Exam: Normal Inspection - Respiratory Exam Respiratory Exam: NORMAL BREATHING PATTERN. absent: Respiratory Distress - Cardiovascular Exam Cardiovascular Exam: +S1, +S2 - GI/Abdominal Exam GI & Abdominal Exam: Soft, Normal Bowel Sounds. absent: Guarding, Tenderness, Rebound - Extremities Exam Extremities Exam: Normal Capillary Refill. absent: Calf Tenderness, Pedal Edema - Neurological Exam Neurological Exam: Alert, Awake, Oriented x3 Assessment and Plan - Assessment and Plan (Free Text) Assessment: Assessment Chest pain Transaminitis: differentials to consider would be hepatic congestion, rule out CBD stone Right lower extremity wound History of atrial fibrillation on Coumadin Cholelithiasis CHF Diabetes mellitus Plan: MRCP report reviewed found multiple gallstones, no CBD dilatations or CBD stones. Start Actigall 300 mg twice a day Continue to trend LFTs which show downward trend Diet as tolerated On PPI On Coumadin Plan for patient to be discharged home, follow up with PCP and monitor LFTs. Discussed with , hospitalist. Seen and discussed with Dr. Brito
== END 2017-03-14 15:12 | disposition home or self-care (01) ==
LOC: ED 19:50 → ERH 21:09 → 2RSO 22:18 → OBSVTOIN 03-13 17:22 → INTOOBSV 03-13 17:22
PROVIDERS: ADMIT Internal Medicine; ATTEND Internal Medicine
DX: R07.9 Chest pain, unspecified (principal); I48.2 Chronic atrial fibrillation; I42.9 Cardiomyopathy, unspecified; I11.0 Hypertensive heart disease with heart failure; I50.9 Heart failure, unspecified; E11.51 Type 2 diabetes mellitus with diabetic peripheral angiopathy without gangrene; M41.9 Scoliosis, unspecified; K76.0 Fatty (change of) liver, not elsewhere classified; J44.9 Chronic obstructive pulmonary disease, unspecified; K57.90 Diverticulosis of intestine, part unspecified, without perforation or abscess without bleeding; K80.20 Calculus of gallbladder without cholecystitis without obstruction; I44.7 Left bundle-branch block, unspecified; M19.90 Unspecified osteoarthritis, unspecified site; E78.5 Hyperlipidemia, unspecified; R79.89 Other specified abnormal findings of blood chemistry; R26.9 Unspecified abnormalities of gait and mobility; Z79.01 Long term (current) use of anticoagulants; Z79.82 Long term (current) use of aspirin; Z87.891 Personal history of nicotine dependence; Z79.84 Long term (current) use of oral hypoglycemic drugs; Z85.118 Personal history of other malignant neoplasm of bronchus and lung
CPT/HCPCS: 36415; 71010; 74181; 76700; 80053; 80162; 81001; 82150; 82248; 82550; 82948; 83615; 83690; 83735; 83880; 84100; 84484; 85025; 85610; 85730; 87086; 93005; 93306; 94640; 94760; 97116; 97162; 99285; G0378; G8978; G8979; J3475; J3480

== ENCOUNTER 2018-04-11 22:05 | Inpatient (IN) | payer MEDICARE ==
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
[2018-04-11] MEDS ORDERED: Albuterol-Ipratrop 3 mg / 0.5 (3 ml) UD IH STA (23:03)
[2018-04-11 23:26] LABS: HEMOGLOBIN 12.9 g/dL (12.0-16.0); MEAN CELL VOLUME 97.4 fl (80.0-105.0); MEAN CORPUSCULAR HEMOGLOBIN 30.9 pg (25.0-35.0); MEAN CORPUSCULAR HGB CONC 31.7 g/dl (31.0-37.0); MEAN PLATELET VOLUME 10.1 fl (7.0-11.0); RBC 4.18 10^6/uL (3.5-6.1); RED CELL DISTRIBUTION WIDTH 13.7 % (11.5-14.5)
[2018-04-11 23:36] LABS: INR 2.51; PARTIAL THROMBOPLASTIN TIME 33.4 Seconds (25.1-36.5); PROTHROMBIN TIME 29.1 SECONDS (9.4-12.5)
[2018-04-11 23:55] LABS: ALBUMIN 3.8 g/dL (3.0-4.8); CALCIUM 9.1 mg/dL (8.4-10.5)
[2018-04-12 00:10] LABS: TROPONIN I 0.04 ng/mL
[2018-04-12] MEDS ORDERED: Potassium Chloride 20 mEq ER Tab PO STA (01:09)
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
[2018-04-12 06:14] LABS: BASO # 0.01 K/mm3 (0.0-2.0); BASO % 0.1 % (0.0-3.0); GRAN # 10.25 (1.4-6.5); GRAN % 92.3 % (50.0-68.0); HEMOGLOBIN 12.2 g/dL (12.0-16.0); LYMPH # 0.7 (1.2-3.4); LYMPH % 6.7 % (22.0-35.0); MEAN CORPUSCULAR HEMOGLOBIN 30.1 pg (25.0-35.0); MEAN CORPUSCULAR HGB CONC 31.4 g/dl (31.0-37.0); MEAN PLATELET VOLUME 10.2 fl (7.0-11.0); MONO # 0.1 (0.1-0.6); MONO % 0.9 % (1.0-6.0); PLATELET COUNT 229 10^3/uL (120.0-450.0); RBC 4.05 10^6/uL (3.5-6.1); RED CELL DISTRIBUTION WIDTH 13.8 % (11.5-14.5); WHITE BLOOD COUNT 11.1 10^3/uL (4.5-11.0)
[2018-04-12 06:32] LABS: LDL CHOLESTEROL 79 mg/dL (0-129)
[2018-04-12 07:17] LABS: ALB/GLOB RATIO 0.9 (1.1-1.8); ALBUMIN 3.7 g/dL (3.0-4.8); ALT/SGPT 18 U/L (7-56); AST/SGOT 17 U/L (14-36); BLOOD UREA NITROGEN 24 mg/dL (7-21); CALCIUM 8.9 mg/dL (8.4-10.5); GFR NON-AFRICAN AMERICAN 53; HDL CHOLESTEROL 26 mg/dL (29-60)
--- NOTE | 2018-04-12 07:21 | RAD ---
Date of service: 04/11/2018 HISTORY: sob COMPARISON: 04/10/2018 FINDINGS: LUNGS: Fibrotic changes in the right upper lobe. No active disease PLEURA: No significant pleural effusion identified, no pneumothorax apparent. CARDIOVASCULAR: Aortic calcifications Mild cardiomegaly. Surgical clips in the right hilum no pulmonary vascular congestion. OSSEOUS STRUCTURES: No significant abnormalities. VISUALIZED UPPER ABDOMEN: Normal. OTHER FINDINGS: None. IMPRESSION: No active disease.
[2018-04-12] MEDS: Budesonide 0.5 mg/2 ml Inhal Susp UD IH SCH ×2 (07:53→20:08)
[2018-04-12] MEDS: Arformoterol 15 mcg/2 ml Inh Sol IH SCH ×2 (07:53→20:07)
[2018-04-12 07:57] LABS: LYMPHOCYTE 10 % (22.0-35.0); NEUTROPHIL 90 % (50.0-70.0); PLATELET ESTIMATE NORMAL (NORMAL)
[2018-04-12] MEDS ORDERED: Budesonide 0.25 mg/2 ml Inhal Susp UD IH SCH (08:00)
[2018-04-12] MEDS ORDERED: Arformoterol 15 mcg/2 ml Inh Sol IH SCH (08:00)
[2018-04-12] MEDS: Insulin Reg-LOW-Coverage SC SCH ×4 (08:58→22:05)
[2018-04-12] MEDS: Magnesium Oxide 400 mg Tab UD PO SCH ×2 (09:00→18:14)
[2018-04-12] MEDS: Potassium Chloride 20 mEq ER Tab PO SCH (09:01)
--- NOTE | 2018-04-12 09:54 | CON ---
DATE: 04/12/2018 HISTORY OF PRESENT ILLNESS: This is an 82-year-old woman admitted through the emergency room yesterday, when she presented with shortness of breath which had been worsening over a couple of days. She has chronic dyspnea with severe COPD, status post resection of the lung for lung cancer and severe LV dysfunction with moderate mitral regurgitation and [id number] tricuspid regurgitation and pulmonary hypertension. She has chronic atrial fibrillation, on warfarin. She did not have chest pain, orthopnea, PND, syncope, presyncope, lightheadedness, dizziness, vertigo, palpitation, edema, fever, chills, cough, sputum production, hemoptysis, abdominal pain, nausea, vomiting, diarrhea, constipation or melena. PAST MEDICAL HISTORY: Also notable for diabetes, hyperlipidemia, fatty liver, osteoarthritis, kyphoscoliosis, colon resection and gallstones. There is no history of rheumatic fever, stroke, TIA or gout. MEDICATIONS: At the time of admission include; Actigall, aspirin, Brovana, Bumex, Coreg, warfarin, digoxin, metformin, glipizide and Xanax. ALLERGIES: SHE NOTES AN ALLERGY TO LASIX AND LATEX. SOCIAL HISTORY: She lives at home. She is ambulatory, but limited using a cane. She is a remote smoker. She denies significant alcohol intake. FAMILY HISTORY: Is not notable for heart attack, but it is notable for stroke and diabetes as well as cancer. REVIEW OF SYSTEMS: A 10-point review of system is otherwise unremarkable except as noted above. PHYSICAL EXAMINATION: GENERAL: She is an elderly woman sitting on her bed in telemetry, in no acute distress. VITAL SIGNS: Notable for atrial fibrillation 83 beats per minute. She is afebrile. Blood pressure 140/78, respirations 20 and O2 sat 96% on nasal cannula. HEENT: Exam reveals no neck vein distention, thyromegaly, carotid bruits. Mucous membranes moist. Conjunctivae pink. NECK: Supple. LUNGS: Lung benites, few scattered rhonchi. HEART: Revealed an irregular rhythm. There is a systolic murmur along the left sternal border. PMI is not palpable. ABDOMEN: Soft. Bowel sounds present. No mass, organomegaly, tenderness, rebound, guarding. No CVA tenderness. No palpable abdominal aortic aneurysm. EXTREMITIES: Exam revealed no cyanosis, clubbing or edema. There are chronic skin changes on both lower extremities. NEUROLOGICALLY: Awake, alert and oriented. PSYCHIATRIC: Normal as to mood and affect. SKIN: Warm and dry. No rash or cellulitis. LABORATORY AND IMAGING STUDIES: EKG is not yet available, I will track it down. The chest x-ray revealed no active disease. I do not see evidence of congestive heart failure on this x-ray. White count 11,100, hemoglobin 12.2, hematocrit 38.9 and platelet count normal. PT 29.1, INR 2.51 and PTT 33.4. Electrolytes, BUN, creatinine and blood sugar are noted. All unremarkable except the blood sugar is 168 and repeat 229. Magnesium is low at 1.5. LFTs are unremarkable. BNP is 7860. Troponin 0.04. CK 40. Cholesterol 116, LDL 79 and triglycerides 67. Digoxin level 0.7. IMPRESSION AND PLAN: Chasity Lerner is an 82-year-old woman admitted with shortness of breath which is predominantly due to chronic obstructive pulmonary disease. At this point, there is no evidence of severe acute decompensated congestive heart failure; although, she does have severe left ventricular dysfunction and valvular heart disease. She has also had a lung resection, pulmonary hypertension and a deconditioned state. At this point, I will review her old records. She is admitted to telemetry. I will continue her current medications including aspirin, Brovana, Bumex, Coreg, digoxin. She will get diabetes medications. She will get pulmonary medications. She will be seen by Dr. Pugh. I will replace magnesium. I will put her on a potassium supplement. We will monitor inputs and outputs, telemetry, stool for occult blood, INR's and daily labs. I will follow along with you. I will make additional recommendations based on her clinical course. Travis Cotter MD [facility]
--- NOTE | 2018-04-12 10:53 | CON ---
DATE: 04/12/2018 PULMONARY CONSULTATION REASON FOR PULMONARY CONSULTATION: Chronic obstructive pulmonary disease. REFERRING PHYSICIAN . Meagan Lundberg MD History is obtained via extensive discussion with the night nurse. I have also reviewed the chart at length, and discussed case with the patient at length. HISTORY OF PRESENT ILLNESS: The patient is an 82-year-old female, with past medical history significant for recurrent congestive heart failure, chronic obstructive pulmonary disease, interstitial lung disease, diabetes mellitus, atrial fibrillation who presents to with increasing shortness of breath at rest, dyspnea on exertion, and cough for the past four days. There is no history of significant sputum production. There is no history of chest pain, coughing up of blood, or chest pain - made worse with deep respirations. There is no history of temperatures, chills, or infectious exposure. There is no history of night sweats, weight loss, or appetite change prior to the above events. No history of calf pains. No history of syncope or diaphoresis. No history of recent travel or trauma. REVIEW OF SYSTEMS: No history of nausea, vomiting, or diarrhea. No acute urinary symptoms. No new neurologic complaints. Rest of the review of systems is negative. ALLERGIES: LASIX AND LATEX. SOCIAL HISTORY: Positive for former tobacco usage. No alcohol. FAMILY HISTORY: No inheritable diseases. HOME MEDICATIONS: Include Coumadin, Actigall, Glucophage, Glucotrol, digoxin, Coreg, Bumex, aspirin, Brovana, and Xanax. PHYSICAL EXAMINATION: GENERAL: The patient appears comfortable this morning. She is not short of breath at rest. VITALS: Temperature is 98.4, pulse 83, respirations 18, and blood pressure 140/78. Oxygen saturation on nasal cannula is 92-96%. HEENT: Normocephalic, atraumatic. NECK: Positive JVD. CARDIOVASCULAR: Systolic ejection murmur at the lower left sternal border. Positive S3 gallop. LUNGS: Crackles at both bases. Minimal rhonchi. No wheezing. EXTREMITIES: Mild edema. No cyanosis. No clubbing. Calves are nontender to palpation. GI: Abdomen is soft, nontender, and nondistended. Bowel sounds are positive. SKIN: No acute rashes. NEUROLOGIC: Limited at the present time. PERTINENT LABORATORY DATA: Chest x-ray was done late last night and reviewed. There is a mild increase in pulmonary vascular congestion noted. There are no significant effusions. Official results are pending. CBC: White count 11.1K, hemoglobin 12.2, hematocrit 38.9, and platelets of 229,000. Complete metabolic profile: BUN 27, glucose 168, troponin 0.04, B-type natriuretic peptide 7860. Rest of the metabolic profile is within normal limits. IMPRESSION: 1. Acute congestive heart failure. 2. Acute bronchitis. 3. Chronic obstructive pulmonary disease. 4. Interstitial lung disease. 5. Chronic atrial fibrillation. PLAN: Again, I did discuss the case with the night nurse at length. I have also reviewed the chart at length, and discussed case with the patient at length. The patient presents to with a four-day history of worsening pulmonary symptoms. I did review the chest x-ray as above. The chest x-ray does show mild pulmonary vascular congestion. I have also reviewed the laboratory data. There is a significant rise in the B-type natriuretic peptide noted. The patient has been placed on Bumex. Cardiology evaluation with Dr. Cotter has been ordered. On physical exam, there is only mild bronchospasm noted. In addition, there is no significant alveolar-arterial gradient. I will continue the current nebulizer treatments and increase the inhaled steroids this morning. The patient does state to feeling better this morning and is clinically improved. Additional pulmonary intervention will be based on the clinical status of the patient. I will discuss the above with the attending physician. Thank you very much for this pulmonary consultation. Chacho Pugh MD [facility]
[2018-04-12 11:05] LABS: TROPONIN I 0.05 ng/mL
[2018-04-12 12:06] LABS: INR 1.75; PROTHROMBIN TIME 20.3 SECONDS (9.4-12.5)
[2018-04-12] MEDS: Albuterol-Ipratrop 3 mg / 0.5 (3 ml) UD IH PRN (14:07)
[2018-04-12] MEDS: Digoxin 125 mcg (0.125 mg) Tab PO SCH (15:22)
--- NOTE | 2018-04-12 18:07 | CARD ---
APPROVED REPORT Date of service: 04/11/2018 EKG Measurement Heart [id number] <Conclusion> Atrial fibrillation Left bundle branch block Abnormal ECG
--- NOTE | 2018-04-12 19:10 | CARD ---
APPROVED REPORT Date of service: 04/12/2018 EKG Measurement Heart [id number] <Conclusion> Atrial fibrillation Left axis deviation Left bundle branch block Abnormal ECG
[2018-04-13 06:31] LABS: BASO # 0.01 K/mm3 (0.0-2.0); BASO % 0.1 % (0.0-3.0); EOS % 0.3 % (1.5-5.0); GRAN # 11.02 (1.4-6.5); HEMOGLOBIN 12.5 g/dL (12.0-16.0); LYMPH # 1.2 (1.2-3.4); LYMPH % 9.1 % (22.0-35.0); MEAN CELL VOLUME 96.3 fl (80.0-105.0); MEAN CORPUSCULAR HEMOGLOBIN 31.1 pg (25.0-35.0); MEAN CORPUSCULAR HGB CONC 32.3 g/dl (31.0-37.0); MEAN PLATELET VOLUME 10.4 fl (7.0-11.0); MONO % 7.5 % (1.0-6.0); RBC 4.02 10^6/uL (3.5-6.1); RED CELL DISTRIBUTION WIDTH 13.8 % (11.5-14.5); WHITE BLOOD COUNT 13.3 10^3/uL (4.5-11.0)
[2018-04-13 06:33] LABS: INR 1.53; PROTHROMBIN TIME 17.7 SECONDS (9.4-12.5)
--- NOTE | 2018-04-13 07:19 | PN ---
DATE: 04/13/2018 PULMONARY NOTE SUBJECTIVE: The patient appears very comfortable this morning. She is not short of breath at rest. PHYSICAL EXAMINATION: VITAL SIGNS: Temperature is 97.8, pulse 89, respirations 18, blood pressure 144/74. Oxygen saturation on room air is 94%. HEENT: Normocephalic, atraumatic. Positive JVD. CARDIOVASCULAR: Systolic ejection murmur at the lower left sternal border. Positive S3 gallop. LUNGS: Less crackles at the bases. Much less rhonchi. No wheezing. EXTREMITIES: Mild edema. No cyanosis. No clubbing. Calves are nontender to palpation. GI: Abdomen is soft, nontender and nondistended. Bowel sounds are positive. SKIN: No acute rash. NEUROLOGIC: Limited at the present time. IMPRESSION: 1. Acute congestive heart failure. 2. Acute bronchitis. 3. Chronic obstructive pulmonary disease. 4. Interstitial lung disease. 5. Chronic atrial fibrillation. PLAN: The patient appears very comfortable this morning. She is not short of breath at rest. She does state to feeling much,much better overall. Her cough is much less. On physical exam, her bronchospasm is significantly less. In addition, the alveolar-arterial gradient is also less. I will continue with the current nebulizer treatments and inhaled steroids for now. Cardiology evaluation is noted. The patient remains on Bumex. Repeat a.m. labs are pending. Clinical status of the patient appears certainly improved - compared to the initial presentation. I will discuss the above with the attending physician. Chacho Pugh MD [facility]
[2018-04-13] MEDS: Budesonide 0.5 mg/2 ml Inhal Susp UD IH SCH ×2 (07:37→21:33)
[2018-04-13] MEDS: Arformoterol 15 mcg/2 ml Inh Sol IH SCH ×2 (07:37→21:32)
[2018-04-13 08:08] LABS: ALB/GLOB RATIO 1.1 (1.1-1.8); ALBUMIN 3.8 g/dL (3.0-4.8); CALCIUM 9.2 mg/dL (8.4-10.5)
--- NOTE | 2018-04-13 08:45 | CP.PCM.PN ---
Subjective - Date & Time of Evaluation Date of Evaluation: 04/13/18 Time of Evaluation: 07:00 - Subjective Subjective: Stable on 2R. No CP SOB. She feels much better. Slept OK 9 PM to 4 AM V/S noted. AF PE: Lungs: clear Cor.: irreg S1S2 Abd.: soft Ext.: no edema Neuro.: alert I/O = 620/200 recorded Labs: noted: INR = 1.53, Mg.++= 1.9, CMP = OK, trop = 0.04, WBC= 13,300 ECG04/12: AF, LBBB Objective - Vital Signs/Intake and Output Vital Signs (last 24 hours): Temp Pulse Resp BP Pulse Ox 97.8 F 89 20 144/74 94 L 04/13/18 06:00 04/13/18 06:00 04/13/18 06:00 04/13/18 06:00 04/13/18 00:01 Intake and Output: 04/13/18 04/13/18 06:59 18:59 Intake Total 80 Output Total 200 Balance -120 - Medications Medications: Current Medications Albuterol/Ipratropium (Duoneb 3 Mg/0.5 Mg (3 Ml) Ud) 3 ml IH Q2H PRN PRN Reason: Shortness of Breath Last Admin: 04/12/18 14:07 Dose: 3 ml Arformoterol Tartrate (Brovana) 15 mcg IH [id number] [facility] Last Admin: 04/13/18 07:37 Dose: 15 mcg Aspirin (Aspirin Chewable) 81 mg PO DAILY [facility] Last Admin: 04/12/18 09:01 Dose: 81 mg Budesonide (Pulmicort Respules) 0.5 mg IH [id number] [facility] Last Admin: 04/13/18 07:37 Dose: 0.5 mg Bumetanide (Bumex) 0.5 mg PO BID [facility] Last Admin: 04/12/18 18:15 Dose: 0.5 mg Carvedilol (Coreg) 3.125 mg PO 0800,1800 [facility] Last Admin: 04/12/18 18:14 Dose: 3.125 mg Digoxin (Digoxin) 0.125 mg PO 1400 [facility] Last Admin: 04/12/18 15:22 Dose: 0.125 mg Famotidine (Pepcid) 40 mg PO HS [facility] Last Admin: 04/12/18 22:10 Dose: 40 mg Insulin Human Regular (Humulin R Low) 0 units SC ACHS [facility]; Protocol Last Admin: 04/12/18 22:05 Dose: Not Given Magnesium Oxide (Mag-Ox) 400 mg PO BID [facility] Last Admin: 04/12/18 18:14 Dose: 400 mg Potassium Chloride (K-Dur 20 Meq Er Tab) 20 meq PO BRK [facility] Last Admin: 04/12/18 09:01 Dose: 20 meq Warfarin Sodium (Coumadin) 5 mg PO ONCE ONE; Protocol Stop: 04/13/18 10:01 Warfarin Sodium (Coumadin) 4 mg PO 1800 [facility]; Protocol - Labs Labs: 04/13/18 05:15 04/13/18 05:15 PT 17.7 SECONDS (9.4-12.5) H 04/13/18 05:15 INR 1.53 04/13/18 05:15 APTT 33.4 Seconds (25.1-36.5) 04/11/18 23:19 Assessment and Plan - Assessment and Plan (Free Text) Assessment: Dyspnea COPD/Bronchitis CHF Echo: Sev. LVD, Mod. MR, Mod/Sev TR and PH Chronic AF on warfarin HBP Diabetes Gall Stones Fatty Liver OA Kyphoscoliosis Plan: Warfarin 5 today. Monitor INRs OOB/PT Continue cardiac meds Pulm meds and tx. As per Dr. Pugh As per Medical Team
[2018-04-13] MEDS: Insulin Reg-LOW-Coverage SC SCH ×4 (10:07→22:29)
[2018-04-13] MEDS: Magnesium Oxide 400 mg Tab UD PO SCH ×2 (10:07→17:40)
[2018-04-13] MEDS: Potassium Chloride 20 mEq ER Tab PO SCH (10:08)
[2018-04-13] MEDS: Digoxin 125 mcg (0.125 mg) Tab PO SCH (13:20)
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
--- NOTE | 2018-04-13 15:43 | CP.PCM.PN ---
<Emil Hill - Last Filed: 04/13/18 15:40> Subjective - Date & Time of Evaluation Date of Evaluation: 04/13/18 Time of Evaluation: 07:00 - Subjective Subjective: Pt seen and examined this morning. Pt sitting in chair comfortably. Pt denies chest pain, or SOB Objective - Vital Signs/Intake and Output Vital Signs (last 24 hours): Temp Pulse Resp BP Pulse Ox 98.3 F 77 18 132/82 94 L 04/13/18 12:00 04/13/18 12:00 04/13/18 12:00 04/13/18 12:00 04/13/18 00:01 Intake and Output: 04/13/18 04/13/18 06:59 18:59 Intake Total 80 Output Total 200 Balance -120 - Medications Medications: Current Medications Albuterol/Ipratropium (Duoneb 3 Mg/0.5 Mg (3 Ml) Ud) 3 ml IH Q2H PRN PRN Reason: Shortness of Breath Last Admin: 04/12/18 14:07 Dose: 3 ml Arformoterol Tartrate (Brovana) 15 mcg IH [id number] [facility] Last Admin: 04/13/18 07:37 Dose: 15 mcg Aspirin (Aspirin Chewable) 81 mg PO DAILY [facility] Last Admin: 04/13/18 10:07 Dose: 81 mg Budesonide (Pulmicort Respules) 0.5 mg IH [id number] [facility] Last Admin: 04/13/18 07:37 Dose: 0.5 mg Bumetanide (Bumex) 0.5 mg PO BID [facility] Last Admin: 04/13/18 10:07 Dose: 0.5 mg Carvedilol (Coreg) 3.125 mg PO 0800,1800 [facility] Last Admin: 04/13/18 10:07 Dose: 3.125 mg Digoxin (Digoxin) 0.125 mg PO 1400 [facility] Last Admin: 04/13/18 13:20 Dose: 0.125 mg Famotidine (Pepcid) 40 mg PO HS [facility] Last Admin: 04/12/18 22:10 Dose: 40 mg Insulin Human Regular (Humulin R Low) 0 units SC [facility]; Protocol Last Admin: 04/13/18 13:20 Dose: 1 units Magnesium Oxide (Mag-Ox) 400 mg PO BID [facility] Last Admin: 04/13/18 10:07 Dose: 400 mg Potassium Chloride (K-Dur 20 Meq Er Tab) 20 meq PO BRK [facility] Last Admin: 04/13/18 10:08 Dose: 20 meq Warfarin Sodium (Coumadin) 4 mg PO 1800 [facility]; Protocol - Labs Labs: 04/13/18 05:15 04/13/18 05:15 PT 17.7 SECONDS (9.4-12.5) H 04/13/18 05:15 INR 1.53 04/13/18 05:15 APTT 33.4 Seconds (25.1-36.5) 04/11/18 23:19 - Constitutional Appears: Non-toxic, No Acute Distress - Head Exam Head Exam: ATRAUMATIC, NORMAL INSPECTION, NORMOCEPHALIC - Eye Exam Eye Exam: EOMI - ENT Exam ENT Exam: Mucous Membranes Moist - Neck Exam Neck Exam: Full ROM - Respiratory Exam Respiratory Exam: Clear to Ausculation Bilateral, NORMAL BREATHING PATTERN. absent: Rhonchi, Wheezes, Respiratory Distress - Cardiovascular Exam Cardiovascular Exam: RRR, +S1, +S2. absent: Diastolic murmur, Murmur - GI/Abdominal Exam GI & Abdominal Exam: Soft, Normal Bowel Sounds - Extremities Exam Extremities Exam: Full ROM. absent: Pedal Edema, Tenderness - Neurological Exam Neurological Exam: Alert, Awake, Oriented x3 - Psychiatric Exam Psychiatric exam: Normal Affect, Normal Mood - Skin Skin Exam: Dry, Intact, Warm Assessment and Plan - Assessment and Plan (Free Text) Assessment: This is an 82 year old female with PMH of systolic CHF, DM, COPD, venous stasis, afib not on AC, pulmonary HTN and pulmonary fibrosis presenting to the ED for one day history of SOB while at rest. Plan: CHF exacerbation - BNP elevated on admission to 7860 - EKG on admission shows afib with LBBB at 82bpm with no ST changes. - increase bumex dose to 2mg BID, f/u cardology recc's - per patient, she received an echo in Dr. [place] one month ago. Most recent echo on record is from 03/2017 showing EF of 25%, aortic sclerosis, mild MR, moderate to severe TR, pulmonary HTN with RVSP of 57 - continue home meds; coreg, digoxin. Holding imdur at this time due to patient concerned with dizziness from medication; BP is controlled - evaluate placement of defibrillator - Pulmonary on consult, Dr. Pugh - Cardiology on consult, Dr. Cotter Mild leukocytosis - WBC 13 - continue to monitor - follow up UA Foot ulcer - podiatry following - cleared by Hx of afib - INR 1.53 - CHADS-Vasc score 7 - follow up cardiology recommendations - PT is elevated at 17.7, concern for risk of bleeding Hx of DM - insulin sliding scale - low - HA1C 6.8 - lipid panel: Trig 67, TC 116, LDL 79, HDL 26 Hx of COPD - borvana/pulmicort - duonebs prn Ppx - SCD - pepcid Pt seen, examined, assessment and plan discussed with Dr Debbie Hill PGY1, Internal Medicine Resident <Karen Lewis - Last Filed: 04/15/18 14:10> Objective - Vital Signs/Intake and Output Vital Signs (last 24 hours): Temp Pulse Resp BP Pulse Ox 97.9 F 85 18 137/74 95 04/15/18 08:03 04/15/18 08:36 04/15/18 08:03 04/15/18 08:36 04/15/18 08:03 - Medications Medications: Current Medications Albuterol/Ipratropium (Duoneb 3 Mg/0.5 Mg (3 Ml) Ud) 3 ml IH Q2H PRN PRN Reason: Shortness of Breath Last Admin: 04/15/18 07:12 Dose: 3 ml Arformoterol Tartrate (Brovana) 15 mcg IH [id number] [facility] Last Admin: 04/15/18 07:12 Dose: 15 mcg Aspirin (Aspirin Chewable) 81 mg PO DAILY [facility] Last Admin: 04/15/18 10:16 Dose: 81 mg Budesonide (Pulmicort Respules) 0.5 mg IH [id number] [facility] Last Admin: 04/15/18 07:12 Dose: 0.5 mg Bumetanide (Bumex) 0.5 mg PO BID [facility] Last Admin: 04/15/18 10:17 Dose: 0.5 mg Carvedilol (Coreg) 3.125 mg PO 0800,1800 [facility] Last Admin: 04/15/18 08:36 Dose: 3.125 mg Digoxin (Digoxin) 0.125 mg PO 1400 [facility] Last Admin: 04/14/18 14:23 Dose: 0.125 mg Docusate Sodium (Colace) 100 mg PO DAILY PRN PRN Reason: Constipation Last Admin: 04/15/18 12:16 Dose: 100 mg Famotidine (Pepcid) 40 mg PO HS [facility] Last Admin: 04/14/18 21:10 Dose: 40 mg Insulin Human Regular (Humulin R Low) 0 units SC ACHS [facility]; Protocol Last Admin: 04/15/18 12:16 Dose: 1 units Magnesium Oxide (Mag-Ox) 400 mg PO BID [facility] Last Admin: 04/15/18 10:17 Dose: 400 mg Potassium Chloride (K-Dur 20 Meq Er Tab) 20 meq PO BRK [facility] Last Admin: 04/15/18 08:36 Dose: 20 meq Warfarin Sodium (Coumadin) 4 mg PO 1800 [facility]; Protocol Last Admin: 04/14/18 18:10 Dose: 4 mg - Labs Labs: 04/15/18 07:00 04/15/18 07:00 PT 25.0 SECONDS (9.4-12.5) H 04/15/18 07:00 INR 2.14 04/15/18 07:00 APTT 33.4 Seconds (25.1-36.5) 04/11/18 23:19 Attending/Attestation - Attestation I have personally seen and examined this patient.: Yes I have fully participated in the care of the patient.: Yes I have reviewed all pertinent clinical information, including history, physical exam and plan: Yes Notes (Text): 04/15/18 14:10 Medical record note made by the resident after discussion with my direction and input after the patient was personally seen and examined by me. I have reviewed the chart and agree that the record accurately reflects by personal performance of the history, physical exam, data review, and medical decision-making, in the course for the patient. I have also personally directed the plan of care.
[2018-04-13 21:18] LABS: BASO # 0.01 K/mm3 (0.0-2.0); BASO % 0.1 % (0.0-3.0); EOS % 0.1 % (1.5-5.0); GRAN # 11.38 (1.4-6.5); GRAN % 83.6 % (50.0-68.0); HEMOGLOBIN 12.9 g/dL (12.0-16.0); LYMPH # 1.4 (1.2-3.4); MEAN CELL VOLUME 96.2 fl (80.0-105.0); MEAN CORPUSCULAR HGB CONC 32.3 g/dl (31.0-37.0); MEAN PLATELET VOLUME 10.2 fl (7.0-11.0); MONO # 0.8 (0.1-0.6); MONO % 6.2 % (1.0-6.0); RBC 4.16 10^6/uL (3.5-6.1); RED CELL DISTRIBUTION WIDTH 13.8 % (11.5-14.5); WHITE BLOOD COUNT 13.6 10^3/uL (4.5-11.0)
[2018-04-13 21:22] LABS: VENOUS BLOOD GAS BASE EXCESS 6.3 mmol/L (0.0-2.0); VENOUS BLOOD GAS PO2 25 mm/Hg (30-55); VENOUS BLOOD PH 7.41 (7.32-7.43)
[2018-04-13 21:41] LABS: ALBUMIN 4.1 g/dL (3.0-4.8)
[2018-04-13 22:55] LABS: URINE APPEARANCE CLEAR (CLEAR); URINE BILIRUBIN NEGATIVE (NEGATIVE); URINE BLOOD NEGATIVE (NEGATIVE); URINE COLOR YELLOW (YELLOW); URINE GLUCOSE (UA) NEGATIVE (NEGATIVE); URINE LEUKOCYTE ESTERASE NEGATIVE Leu/uL (NEGATIVE); URINE PROTEIN NEGATIVE mg/dL (<30 mg/dL); URINE UROBILINOGEN 0.2 E.U./dL (<1 E.U./dL)
[2018-04-14 07:28] LABS: BASO # 0.02 K/mm3 (0.0-2.0); BASO % 0.2 % (0.0-3.0); EOS % 0.2 % (1.5-5.0); GRAN # 8.97 (1.4-6.5); GRAN % 77.8 % (50.0-68.0); LYMPH # 1.3 (1.2-3.4); LYMPH % 11.6 % (22.0-35.0); MEAN CELL VOLUME 96.2 fl (80.0-105.0); MEAN CORPUSCULAR HEMOGLOBIN 30.5 pg (25.0-35.0); MEAN CORPUSCULAR HGB CONC 31.7 g/dl (31.0-37.0); MONO # 1.2 (0.1-0.6); MONO % 10.2 % (1.0-6.0); RBC 3.94 10^6/uL (3.5-6.1); RED CELL DISTRIBUTION WIDTH 13.7 % (11.5-14.5); WHITE BLOOD COUNT 11.5 10^3/uL (4.5-11.0)
[2018-04-14 07:31] LABS: INR 1.74; PROTHROMBIN TIME 20.2 SECONDS (9.4-12.5)
[2018-04-14] MEDS: Arformoterol 15 mcg/2 ml Inh Sol IH SCH ×3 (07:42→18:58)
[2018-04-14] MEDS: Budesonide 0.5 mg/2 ml Inhal Susp UD IH SCH ×3 (07:42→18:58)
[2018-04-14] MEDS: Albuterol-Ipratrop 3 mg / 0.5 (3 ml) UD IH PRN (07:43)
[2018-04-14 07:50] LABS: ALBUMIN 3.7 g/dL (3.0-4.8); CALCIUM 8.9 mg/dL (8.4-10.5)
--- NOTE | 2018-04-14 09:10 | PN ---
DATE: 04/14/2018 SUBJECTIVE: The patient is seen sitting in a chair on telemetry. She is currently comfortable. She remains in atrial fibrillation with controlled ventricular rate. She denies any chest pain. She states that her dyspnea is improved. CURRENT MEDICATIONS: Include aspirin, Brovana, Bumex, carvedilol 3.125 mg b.i.d., Coumadin, digoxin 0.125 mg daily, DuoNeb inhaler, insulin coverage, Pulmicort, Pepcid and potassium supplement. OBJECTIVE: GENERAL: She is an elderly woman who appears comfortable at rest. VITAL SIGNS: The blood pressure is 128/82 with a pulse of 76 and in atrial fibrillation, respirations are 14, she is afebrile. HEENT: No JVD. CHEST: Reveals bilateral scattered rhonchi. HEART: PMI displaced laterally with a soft systolic murmur in the lower left sternal border. ABDOMEN: Soft and nontender with bowel sounds. EXTREMITIES: Trace edema. Both lower extremities are wrapped. DIAGNOSTIC DATA: Potassium 3.8, BUN and creatinine 29 and 1.1, glucose is 145. White count 11.5, hemoglobin and hematocrit are 12 and 37.9 with platelet count of 226,000. INR is 1.74. IMPRESSION: 1. Chronic obstructive pulmonary disease with acute decompensation. 2. Congestive heart failure, acute on chronic with mild decompensation, predominantly systolic. 3. Moderate mitral regurgitation. 4. Moderately severe tricuspid regurgitation. 5. Chronic atrial fibrillation. 6. History of hypertension and diabetes. 7. Rest of the problems as noted. RECOMMENDATIONS: Her current medications should continue for now. Daily INR monitoring with a target of 2.0 to 3.0 as advised. Her current cardiac medications will continue. Continue respiratory treatments as advised. We will continue to follow and make further recommendations as appropriate. Pio Banegas MD MTDD
--- NOTE | 2018-04-14 10:07 | CP.PCM.PN ---
<ShyanneDerick - Last Filed: 04/14/18 16:32> Subjective - Date & Time of Evaluation Date of Evaluation: 04/14/18 Time of Evaluation: 10:07 - Subjective Subjective: Patient seen and examined sitting by bedside this AM, in no acute distress. No chest pain or SOB. Overnight, pt was increasingly confused, was walking out of room with unsteady gait, believing to be going to her porch. Patient is more alert and oriented this morning, admits to confusion last night but unaware why. Spoke to nephew, endorses she has episodes of sundowning, tends to get more confused in new environments. Nephew spoke with patient, who is now amenable to rehabilitation. No acute somatic complaints at this time. Objective - Vital Signs/Intake and Output Vital Signs (last 24 hours): Temp Pulse Resp BP Pulse Ox 98.2 F 75 20 128/82 99 04/14/18 06:00 04/14/18 06:00 04/14/18 06:00 04/14/18 06:00 04/14/18 06:00 Intake and Output: 04/14/18 04/14/18 06:59 18:59 Intake Total 540 Balance 540 - Medications Medications: Current Medications Albuterol/Ipratropium (Duoneb 3 Mg/0.5 Mg (3 Ml) Ud) 3 ml IH Q2H PRN PRN Reason: Shortness of Breath Last Admin: 04/14/18 07:43 Dose: 3 ml Arformoterol Tartrate (Brovana) 15 mcg IH [id number] [facility] Last Admin: 04/14/18 07:42 Dose: 15 mcg Aspirin (Aspirin Chewable) 81 mg PO DAILY [facility] Last Admin: 04/13/18 10:07 Dose: 81 mg Budesonide (Pulmicort Respules) 0.5 mg IH [id number] [facility] Last Admin: 04/14/18 07:42 Dose: 0.5 mg Bumetanide (Bumex) 0.5 mg PO BID [facility] Last Admin: 04/13/18 17:39 Dose: 0.5 mg Carvedilol (Coreg) 3.125 mg PO 0800,1800 [facility] Last Admin: 04/13/18 17:40 Dose: 3.125 mg Digoxin (Digoxin) 0.125 mg PO 1400 [facility] Last Admin: 04/13/18 13:20 Dose: 0.125 mg Famotidine (Pepcid) 40 mg PO HS [facility] Last Admin: 04/13/18 22:30 Dose: Not Given Insulin Human Regular (Humulin R Low) 0 units SC ACHS [facility]; Protocol Last Admin: 04/13/18 22:29 Dose: Not Given Magnesium Oxide (Mag-Ox) 400 mg PO BID [facility] Last Admin: 04/13/18 17:40 Dose: 400 mg Potassium Chloride (K-Dur 20 Meq Er Tab) 20 meq PO BRK [facility] Last Admin: 04/13/18 10:08 Dose: 20 meq Warfarin Sodium (Coumadin) 4 mg PO 1800 [facility]; Protocol - Labs Labs: 04/14/18 06:30 04/14/18 06:30 PT 20.2 SECONDS (9.4-12.5) H 04/14/18 06:30 INR 1.74 04/14/18 06:30 APTT 33.4 Seconds (25.1-36.5) 04/11/18 23:19 - Constitutional Appears: Non-toxic, No Acute Distress - Head Exam Head Exam: ATRAUMATIC, NORMAL INSPECTION, NORMOCEPHALIC - Eye Exam Eye Exam: EOMI, Normal appearance Pupil Exam: NORMAL ACCOMODATION - ENT Exam ENT Exam: Mucous Membranes Moist, Normal Exam - Neck Exam Neck Exam: Full ROM, Normal Inspection - Respiratory Exam Respiratory Exam: Clear to Ausculation Bilateral, NORMAL BREATHING PATTERN. absent: Accessory Muscle Use, Rales, Rhonchi, Wheezes, Respiratory Distress, Stridor - Cardiovascular Exam Cardiovascular Exam: REGULAR RHYTHM, +S1, +S2 - GI/Abdominal Exam GI & Abdominal Exam: Soft, Normal Bowel Sounds. absent: Distended, Firm, Guarding, Rigid, Tenderness, Organomegaly - Extremities Exam Extremities Exam: Normal Capillary Refill. absent: Calf Tenderness, Joint Swelling, Pedal Edema Additional comments: Superficial circular ulceration 0.5cm in diameter and 0.1cm in depth on the morgan ntar aspect of the R hallux with no nik wound erythema, no drainage, no malodor, no fluctuance. Superficial healed ulceration noted to anterior aspect of mid leg with scab formation noted, no drainage, no surrounding erythema. No fluctuance, no clinical signs of infection per Podiatry. - Back Exam Back Exam: NORMAL INSPECTION - Neurological Exam Neurological Exam: Alert, Awake, Oriented x3 - Psychiatric Exam Psychiatric exam: Normal Affect, Normal Mood - Skin Skin Exam: Dry, Intact, Normal Color, Warm Additional comments: as stated above Assessment and Plan - Assessment and Plan (Free Text) Assessment: 82 year old female with PMH of systolic CHF, DM, COPD, venous stasis, afib not on AC, pulmonary HTN and pulmonary fibrosis presenting to the ED for one day history of SOB while at rest, admitted for CHF exacerbation. Plan: CHF exacerbation - BNP elevated on admission to 7860 - EKG on admission shows afib with LBBB at 82bpm with no ST changes. - per patient, she received an echo in Dr. Cotter's one month ago. Most recent echo on record is from 03/2017 showing EF of 25%, aortic sclerosis, mild MR, moderate to severe TR, pulmonary HTN with RVSP of 57 -Medications -Bumex 0.5 mg PO BID -coreg 3.125 mg PO BID -Digoxin 0.125 mg PO Daily -Cardiology recs (Dr. Banegas) appreciated -daily INR monitoring with target of 2-3 -continue current cardiac meds -c/w resp treatment prn -Pumonology recs (Dr. Ivey) appreciated -c/w current nebulizer/steroid treatment -VBG reviewed; pH is normal and pCO2 is within normal range Mild leukocytosis - WBC 11.5 - continue to monitor - UA negative Foot ulcer - podiatry (Dr. Tariq) recs appreciated -R leg dressed with DSD and hallux with optifoam -pt to keep dressing d/c/i -outpatient f/u with Dr. Tariq in [place] [facility] [place] upon discharge -cleared by podiatry Hx of afib - INR 1.74 - Cardiac recommendations as noted above - PT is elevated at 20.2, concern for risk of bleeding Hx of DM - HA1C 6.8 - ISS low dose - lipid panel: Trig 67, TC 116, LDL 79, HDL 26 Hx of COPD - borvana/pulmicort - duonebs prn Ppx, Diet, Disposition - DVT: SCD - GI: pepcid - Diet: HHD - Dispo: amenable to rehab today; will discuss with case mgmt on Monday, plan for discharge to rehab Case discussed with Dr. Debbie Kimble DO, PGY-1 <Karen Lewis - Last Filed: 04/15/18 14:10> Objective - Vital Signs/Intake and Output Vital Signs (last 24 hours): Temp Pulse Resp BP Pulse Ox 97.9 F 85 18 137/74 95 04/15/18 08:03 04/15/18 08:36 04/15/18 08:03 04/15/18 08:36 04/15/18 08:03 - Medications Medications: Current Medications Albuterol/Ipratropium (Duoneb 3 Mg/0.5 Mg (3 Ml) Ud) 3 ml IH Q2H PRN PRN Reason: Shortness of Breath Last Admin: 04/15/18 07:12 Dose: 3 ml Arformoterol Tartrate (Brovana) 15 mcg IH [id number] [facility] Last Admin: 04/15/18 07:12 Dose: 15 mcg Aspirin (Aspirin Chewable) 81 mg PO DAILY [facility] Last Admin: 04/15/18 10:16 Dose: 81 mg Budesonide (Pulmicort Respules) 0.5 mg IH [id number] [facility] Last Admin: 04/15/18 07:12 Dose: 0.5 mg Bumetanide (Bumex) 0.5 mg PO BID [facility] Last Admin: 04/15/18 10:17 Dose: 0.5 mg Carvedilol (Coreg) 3.125 mg PO 0800,1800 [facility] Last Admin: 04/15/18 08:36 Dose: 3.125 mg Digoxin (Digoxin) 0.125 mg PO 1400 [facility] Last Admin: 04/14/18 14:23 Dose: 0.125 mg Docusate Sodium (Colace) 100 mg PO DAILY PRN PRN Reason: Constipation Last Admin: 04/15/18 12:16 Dose: 100 mg Famotidine (Pepcid) 40 mg PO HS [facility] Last Admin: 04/14/18 21:10 Dose: 40 mg Insulin Human Regular (Humulin R Low) 0 units SC ACHS [facility]; Protocol Last Admin: 04/15/18 12:16 Dose: 1 units Magnesium Oxide (Mag-Ox) 400 mg PO BID [facility] Last Admin: 04/15/18 10:17 Dose: 400 mg Potassium Chloride (K-Dur 20 Meq Er Tab) 20 meq PO BRK [facility] Last Admin: 11/04/18 08:36 Dose: 20 meq Warfarin Sodium (Coumadin) 4 mg PO 1800 [facility]; Protocol Last Admin: 04/14/18 18:10 Dose: 4 mg - Labs Labs: 04/15/18 07:00 04/15/18 07:00 PT 25.0 SECONDS (9.4-12.5) H 04/15/18 07:00 INR 2.14 04/15/18 07:00 APTT 33.4 Seconds (25.1-36.5) 04/11/18 23:19 Attending/Attestation - Attestation I have personally seen and examined this patient.: Yes I have fully participated in the care of the patient.: Yes I have reviewed all pertinent clinical information, including history, physical exam and plan: Yes Notes (Text): 04/15/18 14:08 Medical record note made by the resident after discussion with my direction and input after the patient was personally seen and examined by me. I have reviewed the chart and agree that the record accurately reflects by personal performance of the history, physical exam, data review, and medical decision-making, in the course for the patient. I have also personally directed the plan of care. 82 year old female with PMH of systolic CHF, DM, COPD, venous stasis, afib not on AC, pulmonary HTN and pulmonary fibrosis was admitted with CHF exacerbation, Dyspne ahas improved, now on oral Bumetanide, AF, INR is not therapeautic on warfarin 4 mg po daily, we will follow up INR. Chronic veNous stasis ulcer.No sign of infection, Podiatry evaluation is appr eciated. Patient initially refused [facility] but now agreeable,Patient will be discharged to [facility].
[2018-04-14] MEDS: Insulin Reg-LOW-Coverage SC SCH ×4 (10:20→23:41)
[2018-04-14] MEDS: Magnesium Oxide 400 mg Tab UD PO SCH ×2 (10:21→18:12)
[2018-04-14] MEDS: Potassium Chloride 20 mEq ER Tab PO SCH (10:21)
--- NOTE | 2018-04-14 13:00 | CP.PCM.PN ---
<Sadia Floyd - Last Filed: 04/14/18 15:33> Subjective - Date & Time of Evaluation Date of Evaluation: 04/14/18 Time of Evaluation: 15:33 - Subjective Subjective: Podiatry Progress Note- Dr. Tariq/Dr. Montenegro 82 y/o female seen this morning resting comfortably in bedside chair. Denies any pain or discomfort to legs and states dressings remain in place. Denies tingling, numbness or burning in the legs. Denies overnight events. Denies F/C/N/V/CP/SOB Objective - Vital Signs/Intake and Output Vital Signs (last 24 hours): Temp Pulse Resp BP Pulse Ox 98.2 F 75 20 128/82 99 04/14/18 06:00 04/14/18 06:00 04/14/18 06:00 04/14/18 06:00 04/14/18 06:00 Intake and Output: 04/14/18 04/14/18 06:59 18:59 Intake Total 540 Balance 540 - Medications Medications: Current Medications Albuterol/Ipratropium (Duoneb 3 Mg/0.5 Mg (3 Ml) Ud) 3 ml IH Q2H PRN PRN Reason: Shortness of Breath Last Admin: 04/14/18 07:43 Dose: 3 ml Arformoterol Tartrate (Brovana) 15 mcg IH [id number] [facility] Last Admin: 04/14/18 07:42 Dose: 15 mcg Aspirin (Aspirin Chewable) 81 mg PO DAILY [facility] Last Admin: 04/14/18 10:20 Dose: 81 mg Budesonide (Pulmicort Respules) 0.5 mg IH [id number] [facility] Last Admin: 04/14/18 07:42 Dose: 0.5 mg Bumetanide (Bumex) 0.5 mg PO BID [facility] Last Admin: 04/14/18 10:12 Dose: 0.5 mg Carvedilol (Coreg) 3.125 mg PO 0800,1800 [facility] Last Admin: 04/14/18 10:20 Dose: 3.125 mg Digoxin (Digoxin) 0.125 mg PO 1400 [facility] Last Admin: 04/13/18 13:20 Dose: 0.125 mg Famotidine (Pepcid) 40 mg PO HS [facility] Last Admin: 04/13/18 22:30 Dose: Not Given Insulin Human Regular (Humulin R Low) 0 units SC ACHS [facility]; Protocol Last Admin: 04/14/18 10:20 Dose: Not Given Magnesium Oxide (Mag-Ox) 400 mg PO BID [facility] Last Admin: 04/14/18 10:21 Dose: 400 mg Potassium Chloride (K-Dur 20 Meq Er Tab) 20 meq PO BRK [facility] Last Admin: 04/14/18 10:21 Dose: 20 meq Warfarin Sodium (Coumadin) 4 mg PO 1800 [facility]; Protocol - Labs Labs: 04/14/18 06:30 04/14/18 06:30 PT 20.2 SECONDS (9.4-12.5) H 04/14/18 06:30 INR 1.74 04/14/18 06:30 APTT 33.4 Seconds (25.1-36.5) 04/11/18 23:19 - Constitutional Appears: Well, Non-toxic, No Acute Distress - Extremities Exam Additional comments: Bilateral lower extremity exam: Vasc: DP/PT pulses palpable 1/4 B/L. Temperature gradient runs warm to cool B/L. No pedal edema noted DERM- RIGHT- Superficial circular ulceration 0.5cm in diameter and 0.1cm in depth on the plantar aspect of the hallux with no nik wound erythema, no drainage, no malodor, no fluctuance. Superficial healed ulceration noted to anterior aspect of mid leg with scab formation noted, no drainage, no surrounding erythema. No fluctuance, no clinical signs of infection LEFT: no open lesions noted. Neuro: protective pedal sensation diminished B/L Ortho: slight tenderness to palpation of anterior leg wounds B/L - Neurological Exam Neurological Exam: Alert, Awake, Oriented x3 - Psychiatric Exam Psychiatric exam: Normal Affect, Normal Mood Assessment and Plan - Assessment and Plan (Free Text) Assessment: 82 yo female seen and evaluated at bedside for 1) right anterior leg scabs and 2) superficial ulceration on the plantar aspect of the right hallux Plan: Patient seen and evaluated Discussed plan with attending Dr. Montenegro Afebrile, absent leukocytosis Right leg dressed with DSD and right hallux with optifoam Patient to keep the dressings clean dry and intact Patient is stable from podiatry standpoint - to follow up with Dr. Tariq in her office upon discharge <Jayme Montenegro - Last Filed: 04/17/18 12:03> Objective - Vital Signs/Intake and Output Vital Signs (last 24 hours): Temp Pulse Resp BP Pulse Ox 97.4 F L 69 16 125/46 L 94 L 04/16/18 14:00 04/16/18 14:00 04/16/18 14:00 04/16/18 17:57 04/16/18 14:00 - Labs Labs: 04/16/18 06:15 04/16/18 06:15 PT 28.6 SECONDS (9.4-12.5) H 04/16/18 06:15 INR 2.44 04/16/18 06:15 APTT 33.4 Seconds (25.1-36.5) 04/11/18 23:19 Attending/Attestation - Attestation I have personally seen and examined this patient.: Yes I have fully participated in the care of the patient.: Yes I have reviewed all pertinent clinical information, including history, physical exam and plan: Yes
--- NOTE | 2018-04-14 13:29 | PN ---
DATE: 04/14/2018 PULMONARY PROGRESS NOTE SUBJECTIVE: The patient was seen and examined at bedside. Currently, she is receiving inhalation treatment with Brovana and added budesonide. She states she feels a little better with less shortness of breath. PHYSICAL EXAMINATION: VITAL SIGNS: Her temperature is 98, pulse 75, respirations 20, pulse oximetry is 92% on room air, blood pressure 120/80. HEENT: Examination of head, normocephalic and atraumatic. NECK: Supple with no jugular vein distention. CARDIOVASCULAR: S1 and S2. No S3. Regular. PULMONARY: Diminished breath sounds bilaterally with a few scattered rhonchi. No wheezing. GI: Soft, nontender. No organomegaly. EXTREMITIES: No pedal edema. SKIN: Clear with no skin rashes, no cyanosis. NEUROLOGIC: Limited at the present time. DIAGNOSTIC DATA: Additional data reviewed, today's sodium 138, potassium 3.8, chloride 98, BUN 29. Venous blood gas; pH of 7.41, pCO2 of 51, and pO2 of 25. ASSESSMENT: 1. Exacerbation of chronic obstructive pulmonary disease. 2. Acute bronchitis. 3. Congestive heart failure. 4. Interstitial lung disease. PLAN: The patient continues to improve. She is less short of breath. There is no wheezing on physical examination. Venous blood gas was reviewed, pH is normal and pCO2 is also within normal range. Judging from oxygen saturation, she is doing well. Scott Leroy MD
[2018-04-14] MEDS: Digoxin 125 mcg (0.125 mg) Tab PO SCH (14:23)
[2018-04-15] MEDS: Arformoterol 15 mcg/2 ml Inh Sol IH SCH ×2 (07:12→19:40)
[2018-04-15] MEDS: Albuterol-Ipratrop 3 mg / 0.5 (3 ml) UD IH PRN (07:12)
[2018-04-15] MEDS: Budesonide 0.5 mg/2 ml Inhal Susp UD IH SCH ×2 (07:12→19:40)
--- NOTE | 2018-04-15 07:30 | CP.PCM.PN ---
<Derick Kimble - Last Filed: 04/15/18 15:51> Subjective - Date & Time of Evaluation Date of Evaluation: 04/15/18 Time of Evaluation: 07:29 - Subjective Subjective: PGY-1 Medicine Progress Note for Dr. Lewis Patient seen and examined sitting by bedside this AM, in no acute distress. No acute overnight events reported. Endorses constipation, colace was given. No other acute complaints. Pt amenable to rehabilitation, awaiting dispo with case management tomorrow. Objective - Vital Signs/Intake and Output Vital Signs (last 24 hours): Temp Pulse Resp BP Pulse Ox 98.2 F 94 H 20 140/80 92 L 04/14/18 22:37 04/14/18 22:37 04/14/18 22:37 04/14/18 22:37 04/14/18 22:37 - Medications Medications: Current Medications Albuterol/Ipratropium (Duoneb 3 Mg/0.5 Mg (3 Ml) Ud) 3 ml IH Q2H PRN PRN Reason: Shortness of Breath Last Admin: 04/15/18 07:12 Dose: 3 ml Arformoterol Tartrate (Brovana) 15 mcg IH [id number] [facility] Last Admin: 04/15/18 07:12 Dose: 15 mcg Aspirin (Aspirin Chewable) 81 mg PO DAILY [facility] Last Admin: 04/14/18 10:20 Dose: 81 mg Budesonide (Pulmicort Respules) 0.5 mg IH [id number] [facility] Last Admin: 04/15/18 07:12 Dose: 0.5 mg Bumetanide (Bumex) 0.5 mg PO BID [facility] Last Admin: 04/14/18 18:10 Dose: 0.5 mg Carvedilol (Coreg) 3.125 mg PO 0800,1800 [facility] Last Admin: 04/14/18 18:12 Dose: 3.125 mg Digoxin (Digoxin) 0.125 mg PO 1400 [facility] Last Admin: 04/14/18 14:23 Dose: 0.125 mg Famotidine (Pepcid) 40 mg PO HS [facility] Last Admin: 04/14/18 21:10 Dose: 40 mg Insulin Human Regular (Humulin R Low) 0 units SC [facility]; Protocol Last Admin: 04/14/18 23:41 Dose: Not Given Magnesium Oxide (Mag-Ox) 400 mg PO BID [facility] Last Admin: 04/14/18 18:12 Dose: 400 mg Potassium Chloride (K-Dur 20 Meq Er Tab) 20 meq PO BRK [facility] Last Admin: 04/14/18 10:21 Dose: 20 meq Warfarin Sodium (Coumadin) 4 mg PO 1800 [facility]; Protocol Last Admin: 04/14/18 18:10 Dose: 4 mg - Labs Labs: 04/14/18 06:30 04/14/18 06:30 PT 20.2 SECONDS (9.4-12.5) H 04/14/18 06:30 INR 1.74 04/14/18 06:30 APTT 33.4 Seconds (25.1-36.5) 04/11/18 23:19 - Constitutional Appears: Non-toxic, No Acute Distress - Head Exam Head Exam: ATRAUMATIC, NORMAL INSPECTION, NORMOCEPHALIC - Eye Exam Eye Exam: EOMI, Normal appearance Pupil Exam: NORMAL ACCOMODATION - ENT Exam ENT Exam: Mucous Membranes Moist, Normal Exam - Neck Exam Neck Exam: Full ROM, Normal Inspection - Respiratory Exam Respiratory Exam: Clear to Ausculation Bilateral, NORMAL BREATHING PATTERN. absent: Accessory Muscle Use, Rales, Rhonchi, Wheezes, Respiratory Distress, Stridor - Cardiovascular Exam Cardiovascular Exam: REGULAR RHYTHM, +S1, +S2 - GI/Abdominal Exam GI & Abdominal Exam: Soft, Normal Bowel Sounds. absent: Distended, Firm, Guarding, Rigid, Tenderness, Organomegaly, Rebound - Extremities Exam Extremities Exam: Full ROM, Normal Capillary Refill. absent: Calf Tenderness, Pedal Edema - Back Exam Back Exam: NORMAL INSPECTION - Neurological Exam Neurological Exam: Alert, Awake, CN II-XII Intact, Oriented x3 - Psychiatric Exam Psychiatric exam: Normal Affect, Normal Mood - Skin Skin Exam: Normal Color, Warm Assessment and Plan - Assessment and Plan (Free Text) Assessment: 82 year old female with PMH of systolic CHF, DM, COPD, venous stasis, afib not on AC, pulmonary HTN and pulmonary fibrosis presenting to the ED for one day history of SOB while at rest, admitted for CHF exacerbation. Plan: CHF exacerbation - BNP elevated on admission to 7860 - EKG on admission shows afib with LBBB at 82bpm with no ST changes. - per patient, she received an echo in Dr. Cotter's one month ago. Most recent echo on record is from 03/2017 showing EF of 25%, aortic sclerosis, mild MR, moderate to severe TR, pulmonary HTN with RVSP of 57 -Medications -Bumex 0.5 mg PO BID -coreg 3.125 mg PO BID -Digoxin 0.125 mg PO Daily -Cardiology recs (Dr. Banegas) appreciated -daily INR monitoring with target of 2-3 -continue current cardiac meds -c/w resp treatment prn -Pumonology recs (Dr. Ivey) appreciated -c/w current nebulizer/steroid treatment -VBG reviewed; pH is normal and pCO2 is within normal range Mild leukocytosis - WBC 10.4 (04/15) - continue to monitor - UA negative Foot ulcer - podiatry (Dr. Tariq) recs appreciated -R leg dressed with DSD and hallux with optifoam -pt to keep dressing d/c/i -outpatient f/u with Dr. Tariq in [facility] upon discharge -cleared by podiatry Hx of afib - INR 2.14 (04/15) - Cardiac recommendations as noted above - PT is elevated at 25, concern for risk of bleeding Hx of DM - HA1C 6.8 - ISS low dose - lipid panel: Trig 67, TC 116, LDL 79, HDL 26 Hx of COPD - borvana/pulmicort - duonebs prn Constipation -colace Ppx, Diet, Disposition - DVT: SCD - GI: pepcid - Diet: HHD - Dispo: amenable to rehab today; will discuss with case mgmt on Monday, plan for discharge to rehab Case discussed with Dr. Debbie Kimble DO, PGY-1 <Karen Lewis - Last Filed: 04/15/18 17:54> Objective - Vital Signs/Intake and Output Vital Signs (last 24 hours): Temp Pulse Resp BP Pulse Ox 98.1 F 82 18 128/64 96 04/15/18 14:00 04/15/18 17:32 04/15/18 14:00 04/15/18 17:32 04/15/18 14:00 - Medications Medications: Current Medications Albuterol/Ipratropium (Duoneb 3 Mg/0.5 Mg (3 Ml) Ud) 3 ml IH Q2H PRN PRN Reason: Shortness of Breath Last Admin: 04/15/18 07:12 Dose: 3 ml Arformoterol Tartrate (Brovana) 15 mcg IH [id number] [facility] Last Admin: 04/15/18 07:12 Dose: 15 mcg Aspirin (Aspirin Chewable) 81 mg PO DAILY [facility] Last Admin: 04/15/18 10:16 Dose: 81 mg Budesonide (Pulmicort Respules) 0.5 mg IH [id number] [facility] Last Admin: 04/15/18 07:12 Dose: 0.5 mg Bumetanide (Bumex) 0.5 mg PO BID [facility] Last Admin: 04/15/18 17:43 Dose: 0.5 mg Carvedilol (Coreg) 3.125 mg PO 0800,1800 [facility] Last Admin: 04/15/18 17:32 Dose: 3.125 mg Digoxin (Digoxin) 0.125 mg PO 1400 [facility] Last Admin: 04/15/18 14:22 Dose: 0.125 mg Docusate Sodium (Colace) 100 mg PO DAILY PRN PRN Reason: Constipation Last Admin: 04/15/18 12:16 Dose: 100 mg Famotidine (Pepcid) 40 mg PO HS [facility] Last Admin: 04/14/18 21:10 Dose: 40 mg Insulin Human Regular (Humulin R Low) 0 units SC ACHS [facility]; Protocol Last Admin: 04/15/18 17:31 Dose: 1 units Magnesium Oxide (Mag-Ox) 400 mg PO BID [facility] Last Admin: 04/15/18 17:33 Dose: 400 mg Potassium Chloride (K-Dur 20 Meq Er Tab) 20 meq PO BRK [facility] Last Admin: 04/15/18 08:36 Dose: 20 meq Warfarin Sodium (Coumadin) 4 mg PO 1800 [facility]; Protocol Last Admin: 04/15/18 17:33 Dose: 4 mg - Labs Labs: 04/15/18 07:00 04/15/18 07:00 PT 25.0 SECONDS (9.4-12.5) H 04/15/18 07:00 INR 2.14 04/15/18 07:00 APTT 33.4 Seconds (25.1-36.5) 04/11/18 23:19 Attending/Attestation - Attestation I have personally seen and examined this patient.: Yes I have fully participated in the care of the patient.: Yes I have reviewed all pertinent clinical information, including history, physical exam and plan: Yes Notes (Text): 04/15/18 17:49 Patient was seen and examined with medical anthropology director. 82 year old female with PMH of systolic CHF with systolic dysfunction EF 25%, DM, COPD, chronic venous stasis, afib not on AC, pulmonary HTN and pulmonary fibrosis was admitted with acute on chronic systolic CHF exacerbation, has responded well to diuresis, now on oral Bumetanide,we will add low dose of lisinopril.Patient is also on Coreg and digoxin.Dose can be increased if blood pressure allow. AF, Rate is controlled, on anticoagulation with warfarin.INR is therapeautic. Patient initially refused [facility] but now agreeable, plan to discharge her to [facility] once arrangement are made. Management plan was discussed in detail with patient. Education was provided 3
[2018-04-15 07:51] LABS: BASO # 0.02 K/mm3 (0.0-2.0); BASO % 0.2 % (0.0-3.0); EOS % 0.2 % (1.5-5.0); GRAN # 8.2 (1.4-6.5); GRAN % 78.9 % (50.0-68.0); HEMOGLOBIN 12.8 g/dL (12.0-16.0); LYMPH # 1.1 (1.2-3.4); LYMPH % 10.3 % (22.0-35.0); MEAN CELL VOLUME 95.7 fl (80.0-105.0); MEAN CORPUSCULAR HEMOGLOBIN 30.9 pg (25.0-35.0); MEAN CORPUSCULAR HGB CONC 32.3 g/dl (31.0-37.0); MEAN PLATELET VOLUME 10.2 fl (7.0-11.0); MONO # 1.1 (0.1-0.6); MONO % 10.4 % (1.0-6.0); RBC 4.14 10^6/uL (3.5-6.1); RED CELL DISTRIBUTION WIDTH 13.8 % (11.5-14.5); WHITE BLOOD COUNT 10.4 10^3/uL (4.5-11.0)
[2018-04-15 07:54] LABS: INR 2.14
[2018-04-15 08:03] LABS: ALBUMIN 3.7 g/dL (3.0-4.8); CALCIUM 8.8 mg/dL (8.4-10.5)
[2018-04-15] MEDS: Insulin Reg-LOW-Coverage SC SCH ×4 (08:36→22:22)
[2018-04-15] MEDS: Potassium Chloride 20 mEq ER Tab PO SCH (08:36)
[2018-04-15] MEDS: Magnesium Oxide 400 mg Tab UD PO SCH ×2 (10:17→17:33)
[2018-04-15] MEDS: Digoxin 125 mcg (0.125 mg) Tab PO SCH (14:22)
[2018-04-16 06:41] LABS: INR 2.44; PROTHROMBIN TIME 28.6 SECONDS (9.4-12.5)
[2018-04-16 06:49] LABS: BASO # 0.01 K/mm3 (0.0-2.0); BASO % 0.1 % (0.0-3.0); EOS # 0.1 (0.0-0.7); EOS % 1.2 % (1.5-5.0); GRAN # 7.14 (1.4-6.5); GRAN % 76.7 % (50.0-68.0); HEMOGLOBIN 13.3 g/dL (12.0-16.0); LYMPH # 1.2 (1.2-3.4); LYMPH % 12.5 % (22.0-35.0); MEAN CELL VOLUME 96.3 fl (80.0-105.0); MEAN CORPUSCULAR HEMOGLOBIN 30.6 pg (25.0-35.0); MEAN CORPUSCULAR HGB CONC 31.8 g/dl (31.0-37.0); MONO # 0.9 (0.1-0.6); MONO % 9.5 % (1.0-6.0); RBC 4.34 10^6/uL (3.5-6.1); RED CELL DISTRIBUTION WIDTH 13.7 % (11.5-14.5); WHITE BLOOD COUNT 9.3 10^3/uL (4.5-11.0)
[2018-04-16 06:57] LABS: ALB/GLOB RATIO 0.9 (1.1-1.8); ALBUMIN 3.8 g/dL (3.0-4.8); CALCIUM 9.1 mg/dL (8.4-10.5)
[2018-04-16] MEDS: Budesonide 0.5 mg/2 ml Inhal Susp UD IH SCH (07:23)
[2018-04-16] MEDS: Arformoterol 15 mcg/2 ml Inh Sol IH SCH (07:23)
--- NOTE | 2018-04-16 08:00 | PN ---
DATE: 04/16/2018 PULMONARY NOTE SUBJECTIVE: The patient appears very comfortable this morning. She is not short of breath at rest. PHYSICAL EXAMINATION: VITAL SIGNS: Temperature is 98.5, pulse 85, respirations 18, blood pressure 144/86. Oxygen saturation on room air is 100%. HEENT: Normocephalic, atraumatic. Positive JVD. CARDIOVASCULAR: Systolic ejection murmur at the lower left sternal border. Positive S3 gallop. LUNGS: Less crackles at the bases. Much less/very minimal rhonchi. No wheezing. EXTREMITIES: Mild edema. No cyanosis. No clubbing. Calves are nontender to palpation. GI: Abdomen is soft, nontender and nondistended. Bowel sounds are positive. SKIN: No acute rash. NEUROLOGIC: Limited at the present time. IMPRESSION: 1. Acute congestive heart failure. 2. Acute bronchitis. 3. Chronic obstructive pulmonary disease. 4. Interstitial lung disease. 5. Chronic atrial fibrillation. PLAN: The patient appears very comfortable this morning. She is not short of breath at rest. She does state to feeling much, much better overall. I did discuss the case with the night nurse at length. The night nurse stated that the patient had a very good night. On physical exam, the patient's bronchospasm continues to resolve. In addition, the oxygen saturation on room air is now 100%. I will continue with the current nebulizer treatments and inhaled steroids for now. I would continue with the treatment for congestive heart failure as per Cardiology. Their input is noted. Clinical status of the patient is significantly improved - compared to the initial presentation. Her future status/prognosis does remain somewhat guarded. I will discuss the above with the attending physician. Chacho Pugh MD MTDD
[2018-04-16 08:02] VITALS: RESP 16
--- NOTE | 2018-04-16 08:10 | CP.PCM.PN ---
Subjective - Date & Time of Evaluation Date of Evaluation: 04/16/18 Time of Evaluation: 07:00 - Subjective Subjective: Stable on 5R. No CP SOB. She feels OK. V/S noted. PE: Lungs: clear Cor.: irreg S1S2 Abd.: soft Ext.: no edema Neuro.: alert Labs: noted: INR = 2.44, CBC OK, BMP OK ECG04/12: AF, LBBB Objective - Vital Signs/Intake and Output Vital Signs (last 24 hours): Temp Pulse Resp BP Pulse Ox 98 F 85 16 133/84 96 04/16/18 06:00 04/16/18 06:00 04/16/18 06:00 04/16/18 06:00 04/16/18 06:00 Intake and Output: 04/16/18 04/16/18 06:59 18:59 Intake Total 120 Balance 120 - Medications Medications: Current Medications Albuterol/Ipratropium (Duoneb 3 Mg/0.5 Mg (3 Ml) Ud) 3 ml IH Q2H PRN PRN Reason: Shortness of Breath Last Admin: 04/15/18 07:12 Dose: 3 ml Arformoterol Tartrate (Brovana) 15 mcg IH [id number] [facility] Last Admin: 04/16/18 07:23 Dose: 15 mcg Aspirin (Aspirin Chewable) 81 mg PO DAILY [facility] Last Admin: 04/15/18 10:16 Dose: 81 mg Budesonide (Pulmicort Respules) 0.5 mg IH [id number] [facility] Last Admin: 04/16/18 07:23 Dose: 0.5 mg Bumetanide (Bumex) 0.5 mg PO BID [facility] Last Admin: 04/15/18 17:43 Dose: 0.5 mg Carvedilol (Coreg) 3.125 mg PO 0800,1800 [facility] Last Admin: 04/15/18 17:32 Dose: 3.125 mg Digoxin (Digoxin) 0.125 mg PO 1400 [facility] Last Admin: 04/15/18 14:22 Dose: 0.125 mg Docusate Sodium (Colace) 100 mg PO DAILY PRN PRN Reason: Constipation Last Admin: 04/15/18 12:16 Dose: 100 mg Famotidine (Pepcid) 40 mg PO [facility] Last Admin: 04/15/18 22:24 Dose: 40 mg Insulin Human Regular (Humulin R Low) 0 units SC ACHS [facility]; Protocol Last Admin: 04/15/18 22:22 Dose: Not Given Lisinopril (Zestril) 5 mg PO DAILY [facility] Last Admin: 04/15/18 18:52 Dose: Not Given Magnesium Oxide (Mag-Ox) 400 mg PO BID [facility] Last Admin: 04/15/18 17:33 Dose: 400 mg Potassium Chloride (K-Dur 20 Meq Er Tab) 20 meq PO BRK [facility] Last Admin: 04/15/18 08:36 Dose: 20 meq Warfarin Sodium (Coumadin) 4 mg PO 1800 [facility]; Protocol Last Admin: 04/15/18 17:33 Dose: 4 mg - Labs Labs: 04/16/18 06:15 04/16/18 06:15 PT 28.6 SECONDS (9.4-12.5) H 04/16/18 06:15 INR 2.44 04/16/18 06:15 APTT 33.4 Seconds (25.1-36.5) 04/11/18 23:19 Assessment and Plan - Assessment and Plan (Free Text) Assessment: Dyspnea COPD/Bronchitis CHF Echo: Sev. LVD, Mod. MR, Mod/Sev TR and PH Chronic AF on warfarin HBP Diabetes Gall Stones Fatty Liver OA Kyphoscoliosis Plan: Monitor INRs OOB/PT Continue cardiac meds Pulm meds and tx. As per Dr. Pugh As per Medical Team TCU Eval.
[2018-04-16] MEDS: Insulin Reg-LOW-Coverage SC SCH ×3 (08:26→17:54)
--- NOTE | 2018-04-16 08:59 | PN ---
DATE: 04/15/2018 PULMONARY PROGRESS NOTE SUBJECTIVE: The patient was seen and examined at bedside. She is currently receiving inhalation therapy with Brovana and budesonide. She is on intravenous diuretics, which were changed to oral and overall is improving. PHYSICAL EXAMINATION: VITAL SIGNS: Her temperature is 97.9, pulse 85, respirations 18, pulse oximetry is 95 on room air. HEAD, EARS, NOSE AND THROAT: Within normal limits. NECK: Supple with no jugular vein distentions. CARDIOVASCULAR: S1, S2. No S3, regular. PULMONARY: Diminished breath sounds bilaterally with few basilar rhonchi. No wheezing. GI: Soft, nontender. No organomegaly. EXTREMITIES: No pedal edema. No cyanosis. SKIN: No acute skin rashes. NEUROLOGIC: No focal deficits. LABORATORY DATA: Reviewed. Today's WBC 10.4, hemoglobin 12.8. ASSESSMENT: 1. Exacerbation of chronic obstructive pulmonary disease. 2. Acute bronchitis. 3. Congestive heart failure. 4. Interstitial lung disease. PLAN: The patient feels better. She is not short of breath at rest, however, she feels that the nebulizer treatment last less than 4 hours and she becomes more short of breath. Her venous blood gas was within normal range. We will continue with current intervention. Her CBC is normal this morning. Scott Leroy MD
[2018-04-16] MEDS: Potassium Chloride 20 mEq ER Tab PO SCH (09:00)
--- NOTE | 2018-04-16 11:04 | CP.PCM.PN ---
Subjective - Date & Time of Evaluation Date of Evaluation: 04/16/18 Time of Evaluation: 11:01 - Subjective Subjective: Podiatry Progress Note for Dr. Tariq 82 y/o female seen this morning resting comfortably in bedside chair. Denies any pain or discomfort to legs and states dressings remain in place. Denies tingling, numbness or burning in the legs. Denies overnight events. Denies F/C/N/V/CP/SOB Objective - Vital Signs/Intake and Output Vital Signs (last 24 hours): Temp Pulse Resp BP Pulse Ox 98 F 85 16 133/84 96 04/16/18 06:00 04/16/18 06:00 04/16/18 06:00 04/16/18 06:00 04/16/18 06:00 Intake and Output: 04/16/18 04/16/18 06:59 18:59 Intake Total 120 Balance 120 - Medications Medications: Current Medications Albuterol/Ipratropium (Duoneb 3 Mg/0.5 Mg (3 Ml) Ud) 3 ml IH Q2H PRN PRN Reason: Shortness of Breath Last Admin: 04/15/18 07:12 Dose: 3 ml Arformoterol Tartrate (Brovana) 15 mcg IH [id number] [facility] Last Admin: 04/16/18 07:23 Dose: 15 mcg Aspirin (Aspirin Chewable) 81 mg PO DAILY [facility] Last Admin: 04/15/18 10:16 Dose: 81 mg Budesonide (Pulmicort Respules) 0.5 mg IH [id number] [facility] Last Admin: 04/16/18 07:23 Dose: 0.5 mg Bumetanide (Bumex) 0.5 mg PO BID [facility] Last Admin: 04/15/18 17:43 Dose: 0.5 mg Carvedilol (Coreg) 3.125 mg PO 0800,1800 [facility] Last Admin: 04/15/18 17:32 Dose: 3.125 mg Digoxin (Digoxin) 0.125 mg PO 1400 [facility] Last Admin: 04/15/18 14:22 Dose: 0.125 mg Docusate Sodium (Colace) 100 mg PO DAILY PRN PRN Reason: Constipation Last Admin: 04/15/18 12:16 Dose: 100 mg Famotidine (Pepcid) 40 mg PO HS [facility] Last Admin: 04/15/18 22:24 Dose: 40 mg Insulin Human Regular (Humulin R Low) 0 units SC ACHS [facility]; Protocol Last Admin: 04/16/18 08:26 Dose: Not Given Lisinopril (Zestril) 5 mg PO DAILY [facility] Last Admin: 04/15/18 18:52 Dose: Not Given Magnesium Oxide (Mag-Ox) 400 mg PO BID [facility] Last Admin: 04/15/18 17:33 Dose: 400 mg Potassium Chloride (K-Dur 20 Meq Er Tab) 20 meq PO BRK [facility] Last Admin: 04/15/18 08:36 Dose: 20 meq Warfarin Sodium (Coumadin) 4 mg PO 1800 [facility]; Protocol Last Admin: 04/15/18 17:33 Dose: 4 mg - Labs Labs: 04/16/18 06:15 04/16/18 06:15 PT 28.6 SECONDS (9.4-12.5) H 04/16/18 06:15 INR 2.44 04/16/18 06:15 APTT 33.4 Seconds (25.1-36.5) 04/11/18 23:19 - Constitutional Appears: Well, Non-toxic, No Acute Distress - Head Exam Head Exam: ATRAUMATIC, NORMOCEPHALIC - Extremities Exam Additional comments: Bilateral lower extremity exam: Vasc: DP/PT pulses palpable 1/4 B/L. Temperature gradient runs warm to cool B/L. No pedal edema noted DERM- RIGHT- Superficial circular ulceration 0.5cm in diameter and 0.1cm in depth on the plantar aspect of the hallux with no nik wound erythema, no drainage, no malodor, no fluctuance. Superficial healed ulceration noted to anterior aspect of mid leg with scab formation noted, no drainage, no surrounding erythema. No fluctuance, no clinical signs of infection LEFT: no open lesions noted. Neuro: protective pedal sensation diminished B/L Ortho: slight tenderness to palpation of anterior leg wounds B/L - Neurological Exam Neurological Exam: Alert, Awake, Oriented x3 - Psychiatric Exam Psychiatric exam: Normal Affect, Normal Mood Assessment and Plan - Assessment and Plan (Free Text) Assessment: 82 yo female seen and evaluated at bedside for 1) right anterior leg scabs and 2) superficial ulceration on the plantar aspect of the right hallux Plan: Patient seen and evaluated with Dr. Tariq Afebrile, absent leukocytosis Right leg dressed with DSD and right hallux with optifoam Wound cx taken - f/u Patient to keep the dressings clean dry and intact Patient is stable from podiatry standpoint - to follow up with Dr. Tariq in her office upon discharge
[2018-04-16] MEDS: Magnesium Oxide 400 mg Tab UD PO SCH ×2 (11:20→17:55)
[2018-04-16] MEDS: Digoxin 125 mcg (0.125 mg) Tab PO SCH (14:38)
[2018-04-16 14:39] VITALS: PULSE 72
[2018-04-16 14:45] VITALS: PULSE 69; TEMP 97.4; O2SAT 94
--- NOTE | 2018-04-16 17:49 | CP.PCM.PN ---
<Zion Grey - Last Filed: 04/16/18 17:45> Subjective - Date & Time of Evaluation Date of Evaluation: 04/16/18 Time of Evaluation: 07:00 - Subjective Subjective: Zion Grey PGY1 Medicine Progress Note for Dr. Montes Patient was seen and examined at bedside this morning. Patient's shortness of breath has improved. Last bowel movement was yesterday. She is urinating normally and has occasional episodes of lightheadedness but not during time of interview. Denies cp, sob, dizziness, abdominal pain, fever, chills, lower extremity pain and swelling. Vital signs stable. No acute overnight events. A full 12 point ROS was conducted and unremarkable except as stated above. Objective - Vital Signs/Intake and Output Vital Signs (last 24 hours): Temp Pulse Resp BP Pulse Ox 97.4 F L 69 16 103/50 L 94 L 04/16/18 14:00 04/16/18 14:00 04/16/18 14:00 04/16/18 14:00 04/16/18 14:00 Intake and Output: 04/16/18 04/16/18 06:59 18:59 Intake Total 120 Balance 120 - Medications Medications: Current Medications Albuterol/Ipratropium (Duoneb 3 Mg/0.5 Mg (3 Ml) Ud) 3 ml IH Q2H PRN PRN Reason: Shortness of Breath Last Admin: 04/15/18 07:12 Dose: 3 ml Arformoterol Tartrate (Brovana) 15 mcg IH [id number] [facility] Last Admin: 04/16/18 07:23 Dose: 15 mcg Aspirin (Aspirin Chewable) 81 mg PO DAILY [facility] Last Admin: 04/16/18 11:20 Dose: 81 mg Budesonide (Pulmicort Respules) 0.5 mg IH [id number] [facility] Last Admin: 04/16/18 07:23 Dose: 0.5 mg Bumetanide (Bumex) 0.5 mg PO BID [facility] Last Admin: 04/16/18 11:21 Dose: 0.5 mg Carvedilol (Coreg) 3.125 mg PO 0800,1800 [facility] Last Admin: 04/16/18 09:00 Dose: 3.125 mg Digoxin (Digoxin) 0.125 mg PO 1400 [facility] Last Admin: 11/05/18 14:38 Dose: 0.125 mg Docusate Sodium (Colace) 100 mg PO DAILY PRN PRN Reason: Constipation Last Admin: 04/15/18 12:16 Dose: 100 mg Famotidine (Pepcid) 40 mg PO HS [facility] Last Admin: 04/15/18 22:24 Dose: 40 mg Insulin Human Regular (Humulin R Low) 0 units SC ACHS [facility]; Protocol Last Admin: 04/16/18 11:33 Dose: 1 units Lisinopril (Zestril) 5 mg PO DAILY [facility] Last Admin: 04/16/18 11:20 Dose: 5 mg Magnesium Oxide (Mag-Ox) 400 mg PO BID [facility] Last Admin: 04/16/18 11:20 Dose: 400 mg Potassium Chloride (K-Dur 20 Meq Er Tab) 20 meq PO BRK [facility] Last Admin: 04/16/18 09:00 Dose: 20 meq Warfarin Sodium (Coumadin) 4 mg PO 1800 [facility]; Protocol Last Admin: 04/15/18 17:33 Dose: 4 mg - Labs Labs: 04/16/18 06:15 04/16/18 06:15 PT 28.6 SECONDS (9.4-12.5) H 04/16/18 06:15 INR 2.44 04/16/18 06:15 APTT 33.4 Seconds (25.1-36.5) 04/11/18 23:19 - Constitutional Appears: Well, No Acute Distress - Head Exam Head Exam: ATRAUMATIC, NORMAL INSPECTION, NORMOCEPHALIC - Eye Exam Eye Exam: EOMI, Normal appearance, PERRL Pupil Exam: NORMAL ACCOMODATION, PERRL - ENT Exam ENT Exam: Mucous Membranes Moist, Normal Exam - Neck Exam Neck Exam: Full ROM, Normal Inspection. absent: Lymphadenopathy - Respiratory Exam Respiratory Exam: Clear to Ausculation Bilateral, NORMAL BREATHING PATTERN. absent: Rales, Rhonchi, Wheezes, Respiratory Distress - Cardiovascular Exam Cardiovascular Exam: REGULAR RHYTHM, +S1, +S2. absent: Murmur - GI/Abdominal Exam GI & Abdominal Exam: Soft, Normal Bowel Sounds. absent: Tenderness - Extremities Exam Extremities Exam: Full ROM, Normal Capillary Refill. absent: Joint Swelling, Pedal Edema Additional comments: Chronic venous stasis ulcers bilaterally. Dressing applied as per podiatry. - Neurological Exam Neurological Exam: Alert, Awake, CN II-XII Intact, Normal Gait, Oriented x3 Neuro motor strength exam: Left Upper Extremity: 5, Right Upper Extremity: 5, Left Lower Extremity: 5, Right Lower Extremity: 5 - Psychiatric Exam Psychiatric exam: Normal Affect, Normal Mood - Skin Skin Exam: Dry, Intact, Normal Color, Warm Assessment and Plan - Assessment and Plan (Free Text) Assessment: Patient is a 82 year old female with PMH of systolic CHF, DM, COPD, venous stasis ulcers, Afib not on AC, pulmonary HTN and pulmonary fibrosis presenting to the ED for one day history of SOB while at rest. Patient was admitted for CHF exacerbation. Plan: Acute on Chronic CHF exacerbation with Hx of HFrEF - improved - Improved lung exam; no wheezing, rails, rhonchi - c/w budesonide, bumex, coreg, digoxin - c/w duonebs and steroids - Cardiology consulted, recs appreciated. - Pulm consulted, recs appreciated. - BNP elevated on admission to 7860 - EKG on admission shows afib with LBBB at 82bpm with no ST changes. - As per patient, she received an echo in Dr. Cotter's one month ago. Most recent echo on record is from 03/2017 showing EF of 25%, aortic sclerosis, mild MR, moderate to severe TR, pulmonary HTN with RVSP of 57 Venous stasis ulcers - podiatry (Dr. Tariq) recs appreciated. Cleared by podiatry. - Dressing applied to bilateral legs - f/u outpatient with Dr. Tariq wound care center Hx of Afib - c/w warfarin 4mg PO; INR is therapeutic - rate controlled - Cardiac recommendations appreciated. Hx of COPD - c/w borvana/pulmicort - c/w duonebs prn Hx of DM - Hgb A1C 6.8 - c/w ISS low dose - DVT ppx: SCD - GI ppx: pepcid Dispo: pending [facility] placement depending on bed availability. Case was discussed and reviewed with Attending Physician Dr. Montes. <Derrek Montes - Last Filed: 04/16/18 18:48> Objective - Vital Signs/Intake and Output Vital Signs (last 24 hours): Temp Pulse Resp BP Pulse Ox 97.4 F L 69 16 125/46 L 94 L 04/16/18 14:00 04/16/18 14:00 04/16/18 14:00 04/16/18 17:57 04/16/18 14:00 Intake and Output: 04/16/18 04/16/18 06:59 18:59 Intake Total 120 Balance 120 - Medications Medications: Current Medications Albuterol/Ipratropium (Duoneb 3 Mg/0.5 Mg (3 Ml) Ud) 3 ml IH Q2H PRN PRN Reason: Shortness of Breath Last Admin: 04/15/18 07:12 Dose: 3 ml Arformoterol Tartrate (Brovana) 15 mcg IH [id number] [facility] Last Admin: 04/16/18 07:23 Dose: 15 mcg Aspirin (Aspirin Chewable) 81 mg PO DAILY [facility] Last Admin: 04/16/18 11:20 Dose: 81 mg Budesonide (Pulmicort Respules) 0.5 mg IH [id number] [facility] Last Admin: 04/16/18 07:23 Dose: 0.5 mg Bumetanide (Bumex) 0.5 mg PO BID [facility] Last Admin: 04/16/18 17:55 Dose: 0.5 mg Carvedilol (Coreg) 3.125 mg PO 0800,1800 [facility] Last Admin: 04/16/18 17:57 Dose: Not Given Digoxin (Digoxin) 0.125 mg PO 1400 [facility] Last Admin: 04/16/18 14:38 Dose: 0.125 mg Docusate Sodium (Colace) 100 mg PO DAILY PRN PRN Reason: Constipation Last Admin: 04/15/18 12:16 Dose: 100 mg Famotidine (Pepcid) 40 mg PO HS [facility] Last Admin: 04/15/18 22:24 Dose: 40 mg Insulin Human Regular (Humulin R Low) 0 units SC ACHS [facility]; Protocol Last Admin: 04/16/18 17:54 Dose: 2 units Lisinopril (Zestril) 5 mg PO DAILY [facility] Last Admin: 04/16/18 11:20 Dose: 5 mg Magnesium Oxide (Mag-Ox) 400 mg PO BID [facility] Last Admin: 04/16/18 17:55 Dose: 400 mg Potassium Chloride (K-Dur 20 Meq Er Tab) 20 meq PO BRK [facility] Last Admin: 04/16/18 09:00 Dose: 20 meq Warfarin Sodium (Coumadin) 4 mg PO 1800 [facility]; Protocol Last Admin: 04/16/18 17:55 Dose: 4 mg - Labs Labs: 04/16/18 06:15 04/16/18 06:15 PT 28.6 SECONDS (9.4-12.5) H 04/16/18 06:15 INR 2.44 04/16/18 06:15 APTT 33.4 Seconds (25.1-36.5) 04/11/18 23:19 Attending/Attestation - Attestation I have personally seen and examined this patient.: Yes I have fully participated in the care of the patient.: Yes I have reviewed all pertinent clinical information, including history, physical exam and plan: Yes Notes (Text): 04/16/18 18:43 82 year old female with past medical history of systolic CHF, diabetes, COPD and afib who presented with shortness of breath secondary to acute on chronic systolic CHF exacerbation. Symptoms improved with diuresis. Patient is currently on bumex, coreg, digoxin and lisinopril. Cardiology is following. Pulmonary is following as well for COPD. Patient is on duonebs and pulmicort/brovana. Overall her symptoms have improved. D/c planning to [facility] either today or tomorrow once arrangements are made. Derrek Montes MD Hospitalist.
[2018-04-16 17:58] VITALS: BP 125/46
--- NOTE | 2018-04-16 19:31 | CP.PCM.DIS ---
<Que[facility]ion - Last Filed: 04/16/18 22:23> Provider - Provider Date of Admission: 04/12/18 07:39 Attending physician: Derrek Montes MD Time Spent in preparation of Discharge (in minutes): 30 Hospital Course - Lab Results Lab Results: Micro Results 04/16/18 08:48 Leg - Right Gram Stain - Final Most Recent Lab Values WBC 9.3 10^3/uL (4.5-11.0) 04/16/18 06:15 RBC 4.34 10^6/uL (3.5-6.1) 04/16/18 06:15 Hgb 13.3 g/dL (12.0-16.0) 04/16/18 06:15 Hct 41.8 % (36.0-48.0) 04/16/18 06:15 MCV 96.3 fl (80.0-105.0) 04/16/18 06:15 MCH 30.6 pg (25.0-35.0) 04/16/18 06:15 MCHC 31.8 g/dl (31.0-37.0) 04/16/18 06:15 RDW 13.7 % (11.5-14.5) 04/16/18 06:15 Plt Count 257 10^3/uL (120.0-450.0) 04/16/18 06:15 MPV 10.0 fl (7.0-11.0) 04/16/18 06:15 Gran % 76.7 % (50.0-68.0) H 04/16/18 06:15 Lymph % (Auto) 12.5 % (22.0-35.0) L 04/16/18 06:15 Hancock % (Auto) 9.5 % (1.0-6.0) H 04/16/18 06:15 Eos % (Auto) 1.2 % (1.5-5.0) L 04/16/18 06:15 Baso % (Auto) 0.1 % (0.0-3.0) 04/16/18 06:15 Gran # 7.14 (1.4-6.5) H 04/16/18 06:15 Lymph # (Auto) 1.2 (1.2-3.4) 04/16/18 06:15 Hancock # (Auto) 0.9 (0.1-0.6) H 04/16/18 06:15 Eos # (Auto) 0.1 (0.0-0.7) 04/16/18 06:15 Baso # (Auto) 0.01 K/mm3 (0.0-2.0) 04/16/18 06:15 Neutrophils % (Manual) 90 % (50.0-70.0) H 04/12/18 05:30 Lymphocytes % (Manual) 10 % (22.0-35.0) L 04/12/18 05:30 Monocytes % (Manual) TEST NOT PERFORMED 04/12/18 05:30 Platelet Evaluation Normal (NORMAL) 04/12/18 05:30 PT 28.6 SECONDS (9.4-12.5) H 04/16/18 06:15 INR 2.44 04/16/18 06:15 APTT 33.4 Seconds (25.1-36.5) 04/11/18 23:19 pO2 25 mm/Hg (30-55) L 04/13/18 21:16 VBG pH 7.41 (7.32-7.43) 04/13/18 21:16 VBG pCO2 51.0 (40-60) 04/13/18 21:16 VBG HCO3 32.3 mmol/l (21-28) H 04/13/18 21:16 VBG Total CO2 33.9 mmol.L (22-28) H 04/13/18 21:16 VBG O2 Sat (Calc) 48.2 % (40-65) 04/13/18 21:16 VBG Base Excess 6.3 mmol/L (0.0-2.0) H 04/13/18 21:16 VBG Potassium 3.9 mmol/L (3.6-5.2) 04/13/18 21:16 Sodium 137.0 mmol/L (132-148) 04/13/18 21:16 Chloride 99.0 mmol/L (98-107) 04/13/18 21:16 Glucose 195 mg/dl (65-105) H 04/13/18 21:16 Lactate 1.0 mmol/L (0.7-2.1) 04/13/18 21:16 FiO2 21.0 % 11/02/18 21:16 Sodium 138 mmol/L (132-148) 04/16/18 06:15 Potassium 4.1 mmol/L (3.6-5.0) 04/16/18 06:15 Chloride 96 mmol/L (98-107) L 04/16/18 06:15 Carbon Dioxide 34 mmol/L (21-33) H 04/16/18 06:15 Anion Gap 12 (10-20) 04/16/18 06:15 BUN 33 mg/dL (7-21) H 04/16/18 06:15 Creatinine 1.2 mg/dl (0.7-1.2) 04/16/18 06:15 Est GFR ( Amer) 52 04/16/18 06:15 Est GFR (Non-Af Amer) 43 04/16/18 06:15 POC Glucose (mg/dL) 231 mg/dL (65-110) H 04/16/18 16:00 Random Glucose 164 mg/dL (70-110) H 04/16/18 06:15 Hemoglobin A1c 6.8 % (4.2-6.5) H 04/12/18 05:30 Calcium 9.1 mg/dL (8.4-10.5) 04/16/18 06:15 Phosphorus 3.4 mg/dL (2.5-4.5) 04/12/18 05:30 Magnesium 1.9 mg/dL (1.7-2.2) 04/13/18 05:15 Total Bilirubin 1.3 mg/dL (0.2-1.3) 04/16/18 06:15 AST 32 U/L (14-36) 04/16/18 06:15 ALT 25 U/L (7-56) 04/16/18 06:15 Alkaline Phosphatase 85 U/L (38-126) 04/16/18 06:15 Lactate Dehydrogenase 501 U/L (333-699) 04/11/18 23:19 Total Creatine Kinase 40 U/L (35-230) 04/11/18 23:19 Troponin I 0.04 ng/mL 04/12/18 11:50 NT-Pro-B Natriuret Pep 7860 pg/mL (0-450) H 04/11/18 23:19 Total Protein 8.0 g/dL (5.8-8.3) 04/16/18 06:15 Albumin 3.8 g/dL (3.0-4.8) 04/16/18 06:15 Globulin 4.1 gm/dL 04/16/18 06:15 Albumin/Globulin Ratio 0.9 (1.1-1.8) L 04/16/18 06:15 Triglycerides 67 mg/dL (35-160) 04/12/18 05:30 Cholesterol 116 mg/dL (130-200) L 04/12/18 05:30 LDL Cholesterol Direct 79 mg/dL (0-129) 04/12/18 05:30 HDL Cholesterol 26 mg/dL (29-60) L 04/12/18 05:30 Venous Blood Potassium 3.9 mmol/L (3.6-5.2) 04/13/18 21:16 Urine Color Yellow (YELLOW) 04/13/18 22:51 Urine Appearance Clear (CLEAR) 04/13/18 22:51 Urine pH 6.0 (4.7-8.0) 04/13/18 22:51 Ur Specific [place] 1.010 (1.005-1.035) 04/13/18 22:51 Urine Protein Negative mg/dL (<30 mg/dL) 04/13/18 22:51 Urine Glucose (UA) Negative mg/dL (NEGATIVE) 04/13/18 22:51 Urine Ketones Negative mg/dL (NEGATIVE) 04/13/18 22:51 Urine Blood Negative (NEGATIVE) 04/13/18 22:51 Urine Nitrate Negative (NEGATIVE) 04/13/18 22:51 Urine Bilirubin Negative (NEGATIVE) 04/13/18 22:51 Urine Urobilinogen 0.2 E.U./dL (<1 E.U./dL) 04/13/18 22:51 Ur Leukocyte Esterase Negative Santhosh/uL (NEGATIVE) 04/13/18 22:51 Digoxin 0.7 ng/mL (0.8-2.0) L 04/11/18 23:19 - Hospital Course Hospital Course: Zion Grey, PGY1 Discharge Summary for Dr. Montes Patient is a 82 y/o F with PMHx of systolic CHF, DM, COPD, venous stasis, afib not on AC, pulmonary HTN and pulmonary fibrosis presenting to the ED for one day history of SOB while at rest. Patient has had prior episodes of CHF exacerbations. She admits to being compliant with medications. Patient describes her exercise tolerance as sob with walking half a block. Patient presented with BNP elevated on admission at 7860. CXR showed no active disease. EKG showed afib with LBBB with no acute ST changes. Patient had prior echo (Dr. Cotter) one month ago that showed an EF of 25%. Medical team was consulted. Patient was admitted for acute on chronic CHF exacerbation with Hx of HFrEF. Patient was started on budesonide, bumex (home medication), coreg, digoxin, duonebs, and steroid treatment. Cardiology, Podiatry, and pulmonology were consulted. For patient's Afib, she was gien warfarin 4 mg PO as per cardiology recommendations. Podiatry consulted for venous stasis ulcers. In regards to her COPD, patient started on brovana/pulmicort. Overall, patient improved during hospital course. She is no longer short of breath and lung exam did not indicate wheezing/crackles. Patient is clinically improved with vital signs stable and no signs of respiratory distress. Patient is hemodynamically stable for discharge. In order to improve patient's strengthening, she will undergo SOBIA placement. Patient will be discharged to [facility] at [facility]. Upon Discharge: Patient will f/u with her PMD in 3-4 days. Patient will continue her medications as prescribed. Patient will f/u at the wound care center with Dr. Tariq (Podiatry). Discharge Exam - Head Exam Head Exam: ATRAUMATIC, NORMAL INSPECTION, NORMOCEPHALIC - Eye Exam Eye Exam: EOMI, Normal appearance, PERRL - ENT Exam ENT Exam: Mucous Membranes Moist, Normal Exam - Respiratory Exam Respiratory Exam: NORMAL BREATHING PATTERN. absent: Accessory Muscle Use, Rales, Rhonchi, Wheezes, Respiratory Distress - Cardiovascular Exam Cardiovascular Exam: RRR, +S1, +S2 - GI/Abdominal Exam GI & Abdominal Exam: Normal Bowel Sounds - Extremities Exam Extremities exam: full ROM, pedal pulses present Additional comments: Venous stasis ulcers bilateral lower ext. Dressing wrapped by podiatry. - Neurological Exam Neurological exam: Alert, Oriented x3 - Skin Skin Exam: Dry, Intact, Normal Color, Warm Discharge Plan - Follow Up Plan Condition: STABLE Disposition: REHAB FACILITY/REHAB UNIT Instructions: Heart Healthy Diet, Methicillin-Resistant Staphylococcus aureus (MRSA), Preventing Falls, Influenza Virus Vaccine (Recombinant), Pneumococcal Po lysaccharide Vaccine (23-Valent), Heart Failure (DC) Additional Instructions: Please resume your home medications as prescribed. Please follow up with your Primary Care Doctor (Dr. Aragon) within 3-4 days of discharge. Please follow up with Podiatry ([facility]), Dr. Tariq, upon discharge. Please return to the nearest Emergency Department if you experience shortness of breath, chest pain, and difficulty breathing. <Derrek Montes - Last Filed: 04/17/18 07:41> Provider - Provider Date of Admission: 04/12/18 07:39 Attending physician: Derrek Montes MD Time Spent in preparation of Discharge (in minutes): 35 Hospital Course - Lab Results Lab Results: Micro Results 04/16/18 08:48 Leg - Right Gram Stain - Final Most Recent Lab Values WBC 9.3 10^3/uL (4.5-11.0) 04/16/18 06:15 RBC 4.34 10^6/uL (3.5-6.1) 04/16/18 06:15 Hgb 13.3 g/dL (12.0-16.0) 04/16/18 06:15 Hct 41.8 % (36.0-48.0) 04/16/18 06:15 MCV 96.3 fl (80.0-105.0) 04/16/18 06:15 MCH 30.6 pg (25.0-35.0) 04/16/18 06:15 MCHC 31.8 g/dl (31.0-37.0) 04/16/18 06:15 RDW 13.7 % (11.5-14.5) 04/16/18 06:15 Plt Count 257 10^3/uL (120.0-450.0) 04/16/18 06:15 MPV 10.0 fl (7.0-11.0) 04/16/18 06:15 Gran % 76.7 % (50.0-68.0) H 04/16/18 06:15 Lymph % (Auto) 12.5 % (22.0-35.0) L 04/16/18 06:15 Hancock % (Auto) 9.5 % (1.0-6.0) H 04/16/18 06:15 Eos % (Auto) 1.2 % (1.5-5.0) L 04/16/18 06:15 Baso % (Auto) 0.1 % (0.0-3.0) 04/16/18 06:15 Gran # 7.14 (1.4-6.5) H 04/16/18 06:15 Lymph # (Auto) 1.2 (1.2-3.4) 04/16/18 06:15 Hancock # (Auto) 0.9 (0.1-0.6) H 04/16/18 06:15 Eos # (Auto) 0.1 (0.0-0.7) 04/16/18 06:15 Baso # (Auto) 0.01 K/mm3 (0.0-2.0) 04/16/18 06:15 Neutrophils % (Manual) 90 % (50.0-70.0) H 04/12/18 05:30 Lymphocytes % (Manual) 10 % (22.0-35.0) L 04/12/18 05:30 Monocytes % (Manual) TEST NOT PERFORMED 04/12/18 05:30 Platelet Evaluation Normal (NORMAL) 04/12/18 05:30 PT 28.6 SECONDS (9.4-12.5) H 04/16/18 06:15 INR 2.44 04/16/18 06:15 APTT 33.4 Seconds (25.1-36.5) 04/11/18 23:19 pO2 25 mm/Hg (30-55) L 04/13/18 21:16 VBG pH 7.41 (7.32-7.43) 04/13/18 21:16 VBG pCO2 51.0 (40-60) 04/13/18 21:16 VBG HCO3 32.3 mmol/l (21-28) H 04/13/18 21:16 VBG Total CO2 33.9 mmol.L (22-28) H 04/13/18 21:16 VBG O2 Sat (Calc) 48.2 % (40-65) 04/13/18 21:16 VBG Base Excess 6.3 mmol/L (0.0-2.0) H 04/13/18 21:16 VBG Potassium 3.9 mmol/L (3.6-5.2) 04/13/18 21:16 Sodium 137.0 mmol/L (132-148) 04/13/18 21:16 Chloride 99.0 mmol/L (98-107) 04/13/18 21:16 Glucose 195 mg/dl (65-105) H 04/13/18 21:16 Lactate 1.0 mmol/L (0.7-2.1) 04/13/18 21:16 FiO2 21.0 % 04/13/18 21:16 Sodium 138 mmol/L (132-148) 04/16/18 06:15 Potassium 4.1 mmol/L (3.6-5.0) 04/16/18 06:15 Chloride 96 mmol/L (98-107) L 04/16/18 06:15 Carbon Dioxide 34 mmol/L (21-33) H 04/16/18 06:15 Anion Gap 12 (10-20) 04/16/18 06:15 BUN 33 mg/dL (7-21) H 04/16/18 06:15 Creatinine 1.2 mg/dl (0.7-1.2) 04/16/18 06:15 Est GFR ( Amer) 52 04/16/18 06:15 Est GFR (Non-Af Amer) 43 04/16/18 06:15 POC Glucose (mg/dL) 231 mg/dL (65-110) H 04/16/18 16:00 Random Glucose 164 mg/dL (70-110) H 04/16/18 06:15 Hemoglobin A1c 6.8 % (4.2-6.5) H 04/12/18 05:30 Calcium 9.1 mg/dL (8.4-10.5) 04/16/18 06:15 Phosphorus 3.4 mg/dL (2.5-4.5) 04/12/18 05:30 Magnesium 1.9 mg/dL (1.7-2.2) 04/13/18 05:15 Total Bilirubin 1.3 mg/dL (0.2-1.3) 04/16/18 06:15 AST 32 U/L (14-36) 04/16/18 06:15 ALT 25 U/L (7-56) 04/16/18 06:15 Alkaline Phosphatase 85 U/L (38-126) 04/16/18 06:15 Lactate Dehydrogenase 501 U/L (333-699) 04/11/18 23:19 Total Creatine Kinase 40 U/L (35-230) 04/11/18 23:19 Troponin I 0.04 ng/mL 04/12/18 11:50 NT-Pro-B Natriuret Pep 7860 pg/mL (0-450) H 04/11/18 23:19 Total Protein 8.0 g/dL (5.8-8.3) 04/16/18 06:15 Albumin 3.8 g/dL (3.0-4.8) 04/16/18 06:15 Globulin 4.1 gm/dL 04/16/18 06:15 Albumin/Globulin Ratio 0.9 (1.1-1.8) L 04/16/18 06:15 Triglycerides 67 mg/dL (35-160) 04/12/18 05:30 Cholesterol 116 mg/dL (130-200) L 04/12/18 05:30 LDL Cholesterol Direct 79 mg/dL (0-129) 04/12/18 05:30 HDL Cholesterol 26 mg/dL (29-60) L 04/12/18 05:30 Venous Blood Potassium 3.9 mmol/L (3.6-5.2) 04/13/18 21:16 Urine Color Yellow (YELLOW) 04/13/18 22:51 Urine Appearance Clear (CLEAR) 04/13/18 22:51 Urine pH 6.0 (4.7-8.0) 04/13/18 22:51 Ur Specific [place] 1.010 (1.005-1.035) 04/13/18 22:51 Urine Protein Negative mg/dL (<30 mg/dL) 04/13/18 22:51 Urine Glucose (UA) Negative mg/dL (NEGATIVE) 04/13/18 22:51 Urine Ketones Negative mg/dL (NEGATIVE) 04/13/18 22:51 Urine Blood Negative (NEGATIVE) 04/13/18 22:51 Urine Nitrate Negative (NEGATIVE) 04/13/18 22:51 Urine Bilirubin Negative (NEGATIVE) 04/13/18 22:51 Urine Urobilinogen 0.2 E.U./dL (<1 E.U./dL) 04/13/18 22:51 Ur Leukocyte Esterase Negative Santhosh/uL (NEGATIVE) 04/13/18 22:51 Digoxin 0.7 ng/mL (0.8-2.0) L 04/11/18 23:19 Attending/Attestation - Attestation I have personally seen and examined this patient.: Yes I have fully participated in the care of the patient.: Yes I have reviewed all pertinent clinical information, including history, physical exam and plan: Yes Notes (Text): 04/16/18 82 year old female with past medical history of systolic CHF, diabetes, COPD and afib who presented with shortness of breath secondary to acute on chronic systolic CHF exacerbation. Symptoms improved with diuresis. Patient was on bumex, coreg, digoxin and lisinopril. Cardiology was following for CHF and pulmonary for COPD. Overall her symptoms have improved. Patient is discharged to [facility]. Follow up with pmd. Follow up with cardiology/pulmonary. Derrek Montes MD Hospitalist.
== END 2018-04-16 21:20 | DRG 292 ==
LOC: ED 22:05 → ERH 04-12 01:32 → 2RNO 04-12 03:40 → OBSVTOIN 04-12 07:39 → 5RNO 04-14 19:53
PROVIDERS: ADMIT Internal Medicine; ATTEND Internal Medicine
DX: I11.0 Hypertensive heart disease with heart failure (principal); J84.9 Interstitial pulmonary disease, unspecified; J44.0 Chronic obstructive pulmonary disease with (acute) lower respiratory infection; J44.1 Chronic obstructive pulmonary disease with (acute) exacerbation; I50.23 Acute on chronic systolic (congestive) heart failure; E11.51 Type 2 diabetes mellitus with diabetic peripheral angiopathy without gangrene; J20.9 Acute bronchitis, unspecified; I48.2 Chronic atrial fibrillation; I27.20 Pulmonary hypertension, unspecified; E11.622 Type 2 diabetes mellitus with other skin ulcer; L97.519 Non-pressure chronic ulcer of other part of right foot with unspecified severity; I08.1 Rheumatic disorders of both mitral and tricuspid valves; J84.10 Pulmonary fibrosis, unspecified; E78.5 Hyperlipidemia, unspecified; K76.0 Fatty (change of) liver, not elsewhere classified; I44.7 Left bundle-branch block, unspecified; I87.8 Other specified disorders of veins; M41.9 Scoliosis, unspecified; K59.00 Constipation, unspecified; K80.20 Calculus of gallbladder without cholecystitis without obstruction; M19.90 Unspecified osteoarthritis, unspecified site; Z87.891 Personal history of nicotine dependence; Z79.84 Long term (current) use of oral hypoglycemic drugs; Z79.82 Long term (current) use of aspirin; Z79.01 Long term (current) use of anticoagulants